=== PATIENT | female | born 1950 | race Caucasian/White ===

== ENCOUNTER → 2017-07-22 | Outpatient (CLI) | payer MEDICARE, BC | END | disposition home or self-care (01) | LOC: LABWHC1 10:10 | PROVIDERS: ATTEND Internal Medicine Endocrinology, Diabetes & Metabolism | DX: C73 Malignant neoplasm of thyroid gland (principal) | CPT/HCPCS: 36415; 84443 ==

== ENCOUNTER → 2017-12-08 | Outpatient (CLI) | payer MEDICARE, BC ==
--- NOTE | 2017-12-09 13:19 | MM ---
Reason for exam: screening (asymptomatic). Last mammogram was performed 2 years and 3 months ago. History: Patient is postmenopausal and has history of other cancer at age 65. Taking other hormone for 8 months beginning at age 65. Physical Findings: A clinical breast exam by your physician is recommended on an annual basis and results should be correlated with mammographic findings. MG 3D Screening Mammo W/Cad Bilateral CC and MLO view(s) were taken. Prior study comparison: September 19, 2015, right breast MG 3d work up w/cad RT. September 07, 2015, bilateral MG screening mammo w CAD. The breast tissue is heterogeneously dense. This may lower the sensitivity of mammography. Focal asymmetry medial right breast less defined. Fat necrosis calcifications 12 o'clock left breast. No significant changes when compared with prior studies. ASSESSMENT: Negative, BI-RAD 1 RECOMMENDATION: Routine screening mammogram of both breasts in 1 year.
== END | disposition home or self-care (01) ==
LOC: RADMAMWWP 14:13
PROVIDERS: ATTEND Family Medicine
DX: Z12.31 Encounter for screening mammogram for malignant neoplasm of breast (principal)
CPT/HCPCS: 77063; 77067

== ENCOUNTER → 2019-06-06 | Outpatient (CLI) | payer MEDICARE, BC | END | disposition home or self-care (01) | LOC: LABWHC1 11:22 | PROVIDERS: ATTEND Internal Medicine Endocrinology, Diabetes & Metabolism | DX: C73 Malignant neoplasm of thyroid gland (principal) | CPT/HCPCS: 36415; 82308; 84443 ==

== ENCOUNTER → 2020-02-21 | Outpatient (CLI) | payer MEDICARE, BC ==
--- NOTE | 2020-02-21 12:10 | XR ---
EXAMINATION TYPE: XR chest 2V DATE OF EXAM: 02/21/2020 COMPARISON: NONE HISTORY: Cough for 4 months TECHNIQUE: Frontal and lateral views of the chest are obtained. FINDINGS: Patient is rotated. There is eventration of right hemidiaphragm. Bandlike areas of increase d attenuation seen in the left lung. There is no focal air space opacity, pleural effusion, or pneumo thorax seen. The cardiac silhouette size is within normal limits. The osseous structures are intac t. Suspect bronchial wall thickening. IMPRESSION: Exam is rotated. Correlate for reactive airways disease, bronchitis. There are possible areas of scarring within the left lung, consider chest CT for better evaluation.
== END | disposition home or self-care (01) ==
LOC: RADXRMAIN 11:27
PROVIDERS: ATTEND Family Medicine
DX: R05 Cough (principal)
CPT/HCPCS: 71046

== ENCOUNTER → 2020-03-05 | Outpatient (CLI) | payer MEDICARE, BC ==
--- NOTE | 2020-03-05 11:47 | CT ---
EXAMINATION TYPE: CT chest wo con DATE OF EXAM: 03/05/2020 COMPARISON: Chest x-ray 02/21/2020 HISTORY: cough, abnormal chest xray CT DLP: 283.6 mGycm. Automated Exposure Control for Dose Reduction was Utilized. TECHNIQUE: CT scan of the thorax is performed without IV contrast. FINDINGS: LUNGS: The lungs are grossly clear, there is no concerning parenchymal mass or nodule identified. So me linear parenchymal bands may reflect underlying atelectasis or scarring. There is no pleural effus ion or pneumothorax seen. The tracheobronchial tree is patent. MEDIASTINUM: Lack of IV contrast is noted to limit evaluation for mediastinal and especially hilar ad enopathy. Enlarged retrocaval pretracheal nodes are present, aorticopulmonary window yoan enlargemen t, bilateral hilar yoan enlargement suspected. Subcarinal node shows a short axis measurement of anastacio roximately 13 mm Small hiatal hernia suspected. OTHER: No additional significant abnormality is seen. IMPRESSION: Mediastinal and hilar adenopathy. Noncontrast exam. Additional findings above.
== END | disposition home or self-care (01) ==
LOC: RADCTMAIN 10:33
PROVIDERS: ATTEND Family Medicine
DX: R59.0 Localized enlarged lymph nodes (principal); Z88.1 Allergy status to other antibiotic agents
CPT/HCPCS: 71250

== ENCOUNTER → 2020-04-30 | Outpatient (CLI) | payer MEDICARE, BC ==
[2020-04-30 14:53] LABS: African American GFR (CKD) >90 (>60 ml/min/1.73 sqM); Blood Urea Nitrogen 17 mg/dL (7-17); Non-African American GFR(CKD) 81 (>60 ml/min/1.73 sqM)
--- NOTE | 2020-04-30 15:37 | CT ---
EXAMINATION TYPE: CT chest w con DATE OF EXAM: 04/30/2020 COMPARISON: March 05, 2020 HISTORY: enlarged lymph nodes, left side chest pain CT DLP: 411 mGycm Automated exposure control for dose reduction was used. CONTRAST: CT scan of the chest is performed with IV Contrast, patient injected with 100 mL of Isovue 300. FINDINGS: LUNGS: The lungs are grossly clear, there is no concerning parenchymal mass or nodule identified. T here is no pleural effusion or pneumothorax seen. The tracheobronchial tree is patent. MEDIASTINUM: There are no greater than 1 cm hilar or mediastinal lymph nodes. No pericardial effusi on is seen. Thoracic aorta is of normal caliber. The heart is not enlarged. UPPER ABDOMEN: No significant abnormality appreciated. OTHER: No additional significant abnormality is seen. IMPRESSION: Paratracheal and AP window lymph nodes identified none of which measures greater than 1 cm in short a xis. The lungs are clear and free of nodule or infiltrate.
== END | disposition home or self-care (01) ==
LOC: RADCTMAIN 14:14
PROVIDERS: ATTEND Internal Medicine Critical Care Medicine
DX: R59.0 Localized enlarged lymph nodes (principal); Z88.0 Allergy status to penicillin
CPT/HCPCS: 82565; 84520; 71260; Q9967

== ENCOUNTER 2020-05-16 23:38 | Emergency (ER) | payer MEDICARE, BC ==
[2020-05-16 23:44] VITALS: BP 164/85; RESP 22; TEMP 98.9
[2020-05-17] MEDS ORDERED: predniSONE 20 MG TAB PO STA (00:06)
[2020-05-17] MEDS ORDERED: IPRATROPIUM-ALBUTEROL 3 ML NEB INHALATION STA (00:06)
--- NOTE | 2020-05-17 00:28 | ED ---
URI HPI - General Chief Complaint: Upper Respiratory Infection Stated Complaint: Cough Time Seen by Provider: 05/16/20 23:51 Source: patient Mode of arrival: wheelchair Limitations: no limitations - History of Present Illness Initial Comments: Patient is 69-year-old female presenting to emergency Department with chief complaint of a cough and runny nose. Patient reports his symptoms have been ongoing intermittently for the past several months. Patient states she is seen a boiler washer who obtained to CTs of her chest to rule out concerns of lung cancer. Patient states particularly over the last week she has developed increased coughing along with some yellow sputum production. She does report occasional wheezing especially today. Patient states she has an albuterol inhaler but it is not helping her symptoms. Patient denies any sore throat but reports clear bilateral rhinorrhea. Denies otalgia, headache. Denies any night sweats fevers or chills. Denies any chest pain or shortness of breath. - Related Data Home Medications Medication Instructions Recorded Confirmed Escitalopram [Lexapro] 10 mg PO DAILY 12/04/14 05/16/20 Previous Rx's Medication Instructions Recorded Azithromycin [Zithromax Z-pack] 0 mg PO DIRECTED #1 pack 05/17/20 Guaifenesin/Dextromethorphan 1 each PO BID #30 tab 05/17/20 [Mucinex Dm ER 1,200-60 mg Tab] predniSONE 50 mg PO DAILY #5 tab 05/17/20 Allergies Allergy/AdvReac Type Severity Reaction Status Date / Time No Known Allergies Allergy Verified 05/16/20 23:44 Review of Systems ROS Statement: Those systems with pertinent positive or pertinent negative responses have been documented in the HPI. ROS Other: All systems not noted in ROS Statement are negative. Past Medical History Past Medical History: Asthma, Cancer, Thyroid Disorder History of Any Multi-Drug Resistant Organisms: None Reported Past Surgical History: Section, Hernia Repair Additional Past Surgical History / Comment(s): thyroidectomy Past Psychological History: Depression Smoking Status: Former smoker Past Alcohol Use History: Occasional Past Drug Use History: None Reported General Exam Limitations: no limitations General appearance: alert, in no apparent distress Head exam: Present: atraumatic, normocephalic, normal inspection Eye exam: Present: normal appearance, PERRL, EOMI Pupils: Present: normal accommodation ENT exam: Present: normal exam, normal oropharynx, mucous membranes moist Neck exam: Present: normal inspection, full ROM. Absent: tenderness Respiratory exam: Present: wheezes (Diffuse bilateral wheezing, mild.). Absent: respiratory distress, rales, rhonchi, stridor Cardiovascular Exam: Present: regular rate, normal rhythm, normal heart sounds Extremities exam: Present: normal inspection, full ROM. Absent: tenderness Back exam: Present: normal inspection, full ROM. Absent: tenderness, CVA tenderness (R), CVA tenderness (L) Neurological exam: Present: alert, oriented X3 Psychiatric exam: Present: normal affect, normal mood Skin exam: Present: warm, dry, intact, normal color Course Vital Signs 05/16/20 05/17/20 05/17/20 23:39 00:46 01:00 Temperature 98.9 F Pulse Rate 107 H 92 96 Respiratory 22 Rate Blood Pressure 164/85 O2 Sat by Pulse 95 Oximetry - Reevaluation(s) Reevaluation #1: 05/17/20 01:49 Chart reviewed 05/17/20 01:50 Medical Decision Making - Medical Decision Making Patient is 69-year-old female presenting to the emergency department with chief complaint of cough and nasal drainage. Exam patient is mild, diffuse bilateral wheezing. Patient was given DuoNeb and 60 mg of prednisone. X-ray reveals no acute pathologies at this time. On reevaluation, patient reports no wheezing states she can breathe better now. Patient reports the cough is also improved. On auscultation, wheezing is resolved bilaterally. Patient will be discharged on azithromycin and 5 days of prednisone. I also gave the patient Mucinex DM in the ED and discharge her with Mucinex DM. Patient is scheduled to follow-up with her boiler washer tomorrow. No chest pain or shortness of breath. Vitals are stable. Strict return parameters were thoroughly discussed patient is worsening agreeable. Case discussed with physician. Disposition Clinical Impression: Cough, Bronchitis Disposition: HOME SELF-CARE Condition: Stable Instructions (If sedation given, give patient instructions): Acute Bronchitis (ED) Additional Instructions: Take prescribed medication as directed. Follow-up with a boiler washer. Return to emergency department if symptoms worsen. Prescriptions: Guaifenesin/Dextromethorphan [Mucinex Dm ER 1,200-60 mg Tab] 1 each PO BID #30 tab predniSONE 50 mg PO DAILY #5 tab Azithromycin [Zithromax Z-pack] 0 mg PO DIRECTED #1 pack Is patient prescribed a controlled substance at d/c from ED?: No Referrals: Kalyan Becerril MD [Primary Care Provider] - 1-2 days Time of Disposition: 01:24
--- NOTE | 2020-05-17 00:32 | XR ---
EXAMINATION TYPE: XR chest 2V DATE OF EXAM: 05/17/2020 COMPARISON: 02/21/2020 HISTORY: Cough TECHNIQUE: FINDINGS: Heart and mediastinum are normal. Lungs are clear. Diaphragm is normal. Bony thorax appears intact. Pulmonary vascularity is normal. IMPRESSION: Normal chest. No change.
[2020-05-17 01:01] VITALS: PULSE 96
[2020-05-17] MEDS ORDERED: guaiFENesin-DM 600/30MG 1 EACH TAB.ER.12H PO ONE (01:30)
== END 2020-05-17 01:49 | disposition home or self-care (01) ==
LOC: EC 23:38
DX: J40 Bronchitis, not specified as acute or chronic (principal); F32.9 Major depressive disorder, single episode, unspecified; Z79.899 Other long term (current) drug therapy; Z87.891 Personal history of nicotine dependence
CPT/HCPCS: 71046; 94640; 99283

== ENCOUNTER 2020-05-25 12:07 | Day surgery (SDC) | payer MEDICARE, BC ==
[2020-05-24 10:12] VITALS: BMI 30.8
[~2020-05-25 12:07] MED LIST: ALBUTEROL NEB (CONC) 2.5 MG/0.5 ML INHALATION ONE; DEXAMETHASONE SOD PHOSPHATE 10 MG/ML 1 ML VIAL IV ONE; LACTATED RINGERS 1,000 ML IV SCH; LIDOCAINE 1% (10MG/ML) FOR IV START INTRADERMA PRN; LIDOCAINE 2% (PF) 20 MG/ML 5 ML VIAL INHALATION ONE; LIDOCAINE VISCOUS 300 MG/15 ML CUP MUCOUS MEM ONE; ONDANSETRON 4 MG/2 ML VIAL IVP ONE; SODIUM CHLORIDE 0.9% 1,000 ML IV SCH
[2020-05-25 12:45] VITALS: TEMP 98.8
[2020-05-25] MEDS ORDERED: KETAMINE 10 MG/ML 20 ML VIAL ONE (14:12)
[2020-05-25] MEDS ORDERED: MIDAZOLAM 2 MG/2 ML VIAL ONE (14:12)
[2020-05-25] MEDS ORDERED: GLYCOPYRROLATE 0.2 MG/ML 2 ML VIAL ONE (14:12)
[2020-05-25] MEDS ORDERED: PROPOFOL 10 MG/ML 20 ML VIAL IV ONE (14:12)
[2020-05-25] MEDS ORDERED: LIDOCAINE 2% INJ 20 MG/ML INTRATRACH ONE (14:44)
--- NOTE | 2020-05-25 15:06 | P.PCN ---
Date of Procedure: 05/25/20 Preoperative Diagnosis: chronic cough Postoperative Diagnosis: 1 upper airway dynamic obstruction consistent with obstructive sleep apnea 2 erythematous and swollen and inflamed arytenoids and diffuse inflammatory changes involving the laryngeal structures including the epiglottis and arytenoids and the vocal cords. 3 diffuse tracheal bronchomalacia, severe 4 diffuse mucosal inflammatory changes, a bronchioloalveolar lavage of the lingula was done. Procedure(s) Performed: Flexible bronchoscopy, BAL of the lingula Anesthesia: MAC Surgeon: Keisha Poole Router Machine Operator #1: Clarice Ji Estimated Blood Loss (ml): 0 Pathology: other Condition: stable Disposition: same day Operative Findings: This is a 69-year-old female patient who is undergoing a bronchoscopy for airway inspection regarding chronic cough. The patient is a ex-smoker. She has no si gnificant environmental or occupational exposure. She has had previous based on lymphadenopathy was identified on a CAT scan of the chest was done in February 2020. Subsequent CAT scan of the chest that was done and April 2020 showed no significant change or progression of the mediastinal lymph nodes. In fact, the B cell lymph nodes looked to be smaller in size and number. No evidence of an interstitial lung disease. Airway inspection was done The patient was brought into the endoscopy suite. The patient was given a combination of Versed, ketamine and propofol. Note that his medication was being administered by APPLIED ANTHROPOLOGIST at the bedside. After achieving adequate sedation, the flexible bronchoscope was introduced through the right nostril was advanced to the operating room. There was obvious dynamic obstruction of the upper airway structures including the pharyngeal the laryngeal wall and this was typical of obstructive sleep apnea. The neck was positioned and the jaw was lifted to achieve better airway patency. Bronchoscope was advanced into the larynx and the laryngeal structures were inspected. Epiglottis was erythematous and inflamed. Arytenoids were swollen and the anatomy was somewhat disrupted based on the significant swelling and inflammatory changes that was seen in the arytenoids. There was some looseness for secretions and saliva the secretions and the vallecula that was suctioned out. The joint the false vocal cords were inspected. These were functional and there was no anatomic obstruction or lesions or nodules are polyps. A total of 2 mL of 1% lidocaine was applied to the vocal cords and following that the flexible bronchoscope was advanced into the upper trachea. Immediately after this advancement, he was obvious that the patient had a component of severe tracheal bronchomalacia. There was no subglottic stenosis. The entire trachea was inspected and taken mucosa was again inflamed and erythematous. The membranous trachea was very dynamic and the patient was having near complete occlusion of the airway lumen with exhalation and coughing. There was almost complete obstruction to the point where I was unable to advance the bronchoscope while the patient was exhaling and coughing. With careful medication, adequate airway inspection was done. I was unable to complete airway inspection as the patient was having airway obstruction which was probably a combination of upper and lower airways where she was desaturating and a pulse ox was dropping in the mid 60s. On few occasions, the procedure was interrupted and stopped for bathing purposes where the patient was given some ambu bagging improved oxygenation bringing it up above 90%. I was able to briefly do a bronchioloalveolar lavage of the superior segment of the lingula. The bronchoscope was wedged in the severe segment and a total of 6 mL of fluid was infused and 15 mL of aspirate was obtained and the aspirate was blood tinged yet not hemorrhagic. It was obvious that the entire airway was involved in significant degree of bronchomalacia where there was near complete collapse of the airways with exhalation maneuvers. Unable to do a Full airway inspection. The visualized airways showed malacia without any endobronchial foreign bodies or tumors or polyps or lesions. For the reasons of safety and oxygen saturation, the procedure was terminated. The bronchoscope was removed. The patient was given adequate oxygenation with a pulse ox was brought above 90% and the procedure was terminated. The fluid that was aspirated from the lingula will be sent for microbial cultures and analysis. Plan 1 BAL from the lingula for Gram stain and culture the microbial analysis 2 This patient for a sleep study, with a high suspicion for obstructive sleep apnea 3 Add proton pump inhibitor such as Prilosec 40 mg by mouth daily 4 CT of the chest was reviewed 5 Suggest maintenance inhalers such as Breo or Advair 6 Suggest low dose predsnisone at 10 mg daily for the next 30 days and a revaluation 7 Diflucan 100 mg daily for 1 week 8 FU in the office
[2020-05-25] MEDS ORDERED: LACTATED RINGERS 1,000 ML IV ONE (15:19)
[2020-05-25 15:46] VITALS: RESP 20
[2020-05-25 16:07] LABS: Appearance,BF Blood Tinged; Color,BF Pink; Nucleated Cells, Body Fluid 525 /uL; RBC, Body Fluid 13475 /uL
[2020-05-25 16:09] LABS: Mononuclear WBC,Body Fluid 28 %; Polynuclear WBC,Body Fluid 63 %; Total Cells Counted,Body Fluid 100
[2020-05-25 16:18] VITALS: BP 138/84; PULSE 100
== END 2020-05-25 16:47 | disposition home or self-care (01) ==
LOC: ORWHC2ENDO 12:07
PROVIDERS: ATTEND Internal Medicine Critical Care Medicine
DX: J98.09 Other diseases of bronchus, not elsewhere classified (principal); R05 Cough; J98.8 Other specified respiratory disorders; R59.0 Localized enlarged lymph nodes; F32.9 Major depressive disorder, single episode, unspecified; Z85.850 Personal history of malignant neoplasm of thyroid; Z81.8 Family history of other mental and behavioral disorders; Z83.511 Family history of glaucoma; Z87.891 Personal history of nicotine dependence; Z98.890 Other specified postprocedural states; Z79.890 Hormone replacement therapy; Z79.899 Other long term (current) drug therapy; Z88.0 Allergy status to penicillin
CPT/HCPCS: 89050; 87252; 87070; 87205; 87116; 87102; 87206; 31624; J2001; J2250; J2704; 88108; 88305

== ENCOUNTER → 2020-06-15 | Outpatient (CLI) | payer MEDICARE, BC ==
[2020-06-16 00:02] LABS: African American GFR (CKD) 85.4 (60.0-200.0); Albumin 4.1 g/dL (3.80-4.90); Albumin/Globulin Ratio 1.64 (1.60-3.17); Anion Gap 9.6 mmol/L (4.00-12.00); BUN/Creat Ratio 21.25 Ratio (12.00-20.00); Calcium 9.2 mg/dL (8.7-10.3); Carbon Dioxide 27.4 mmol/L (21.6-31.8); Globulin 2.5 g/dL (1.6-3.3); Non-African American GFR(CKD) 73.7 (60.0-200.0); Potassium 4.1 mmol/L (3.5-5.5); Total Bilirubin 0.5 mg/dL (0.3-1.2); Total Protein 6.6 g/dL (6.2-8.2)
== END | disposition home or self-care (01) ==
LOC: LABWHC1 12:59
PROVIDERS: ATTEND Internal Medicine Endocrinology, Diabetes & Metabolism
DX: C73 Malignant neoplasm of thyroid gland (principal)
CPT/HCPCS: 36415; 80053; 82308; 84443

== ENCOUNTER → 2020-06-29 | Outpatient (CLI) | payer MEDICARE, BC ==
--- NOTE | 2020-06-30 09:04 | CT ---
EXAMINATION TYPE: CT abdomen w con DATE OF EXAM: 06/29/2020 COMPARISON: None HISTORY: abdominal pain and burning sensation CT DLP: 589.2 mGycm Automated exposure control for dose reduction was used. TECHNIQUE: Helical acquisition of images was performed from the lung bases through the top of iliac crest to include entire abdomen. CONTRAST: Performed with Oral Contrast and with IV Contrast, patient injected with 100 mL of Isovue 300. FINDINGS: LUNG BASES: Some minimal dependent atelectatic changes are present, no pleural or pericardial effusio n LIVER/GB: No significant abnormality is appreciated. PANCREAS: No significant abnormality is seen. SPLEEN: No significant abnormality is seen. ADRENALS: No significant abnormality is seen. KIDNEYS: No significant abnormality is seen. BOWEL: Extensive diverticular changes noted in the sigmoid colon. The appendix is normal. LYMPH NODES: No significant abnormality is appreciated. OSSEOUS STRUCTURES: Degenerative disc changes are present in the visualized spine, there is a spinal curvature FREE AIR: No Free Air visible ASCITES: None visible. RETROPERITONEAL ADENOPATHY: No Retroperitoneal Adenopathy visible. OTHER: IMPRESSION: DIVERTICULOSIS.
== END | disposition home or self-care (01) ==
LOC: RADCTMAIN 15:54
PROVIDERS: ATTEND Family Medicine
DX: K57.30 Diverticulosis of large intestine without perforation or abscess without bleeding (principal); R10.12 Left upper quadrant pain
CPT/HCPCS: 82565; 84520; 74160; 36415; Q9967

== ENCOUNTER 2020-09-25 13:39 | Inpatient (IN) | payer MEDICARE, BC ==
--- NOTE | 2020-09-25 14:30 | ED ---
General Adult HPI - General Chief complaint: Chest Pain Stated complaint: Chest Pain Time Seen by Provider: 09/25/20 13:40 Source: patient, RN notes reviewed, old records reviewed Mode of arrival: ambulatory Limitations: no limitations - History of Present Illness Initial comments: This is a 70-year-old female presents emergency Department stating since she has felt extremely tired and weak. Patient states she's had a cough and some shortness of breath and some pleuritic chest pain. Patient states she's not taking deep breaths she has no chest pain. Patient also states she's had diarrhea and a runny nose. Patient states she probably has had some exposure to cold but she doesn't know specifically any personal headache. Patient denies any abdominal pain patient denies nausea vomiting. Patient denies any headache patient denies any numbness weakness. Patient denies lightheadedness or dizziness. Patient denies any swelling to her legs. - Related Data Home Medications Medication Instructions Recorded Confirmed Escitalopram [Lexapro] 10 mg PO DAILY 12/04/14 09/25/20 Albuterol Inhaler [Ventolin Hfa 2 puff INHALATION RT-Q4H PRN 05/24/20 09/25/20 Inhaler] Calcium Carb/Vitamin D3/Vit K1 1 tab PO DAILY 05/24/20 09/25/20 [Citracal Soft Chew] Chorella 1,000 mg PO BID 05/24/20 09/25/20 Garlic 1 tab PO DAILY 05/24/20 09/25/20 Levothyroxine Sodium [Synthroid] 75 mcg PO DAILY@0300 05/24/20 09/25/20 Multivitamin [Multivitamins Adult 1 tab PO BID 05/24/20 09/25/20 Gummies] Ceyenne 1 tab PO DAILY 09/25/20 09/25/20 Eye Bright 1 tab PO BID 09/25/20 09/25/20 Hazard [place] 1 tab PO DAILY 09/25/20 09/25/20 Montelukast [Singulair] 10 mg PO DAILY 09/25/20 09/25/20 Pantoprazole [Protonix] 40 mg PO DAILY 09/25/20 09/25/20 Super Orderless Garlic 1 tab PO DAILY 09/25/20 09/25/20 Allergies Allergy/AdvReac Type Severity Reaction Status Date / Time amoxicillin [From Augmentin] Allergy Vomiting Verified 09/25/20 14:28 clavulanic acid Allergy Vomiting Verified 09/25/20 14:28 [From Augmentin] Review of Systems ROS Statement: Those systems with pertinent positive or pertinent negative responses have been documented in the HPI. ROS Other: All systems not noted in ROS Statement are negative. Past Medical History Past Medical History: Cancer, Thyroid Disorder Additional Past Medical History / Comment(s): THYROID CANCER, COUGH History of Any Multi-Drug Resistant Organisms: None Reported Past Surgical History: Section, Hernia Repair Additional Past Surgical History / Comment(s): thyroidectomy Past Anesthesia/Blood Transfusion Reactions: No Reported Reaction Past Psychological History: Depression Smoking Status: Former smoker Past Alcohol Use History: None Reported Past Drug Use History: None Reported - Past Family History Mother Family Medical History: No Reported History General Exam - General Exam Comments Initial Comments: GENERAL: Patient is well-developed and well-nourished. Patient is nontoxic and well- hydrated and is in mild distress. ENT: Neck is soft and supple. No significant lymphadenopathy is noted. Oropharynx is clear. Moist mucous membranes. Neck has full range of motion without eliciting any pain. EYES: The sclera were anicteric and conjunctiva were pink and moist. Extraocular movements were intact and pupils were equal round and reactive to light. Eyelids were unremarkable. PULMONARY: Unlabored respirations. Good breath sounds bilaterally. No audible rales rhonchi or wheezing was noted. CARDIOVASCULAR: There is a regular rate and rhythm without any murmurs gallops or rubs. ABDOMEN: Soft and nontender with normal bowel sounds. SKIN: Skin is clear with no lesions or rashes and otherwise unremarkable. NEUROLOGIC: Patient is alert and oriented x3. Cranial nerves II through XII are grossly int act. Motor and sensory are also intact. Normal speech, volume and content. Symmetrical smile. MUSCULOSKELETAL: Normal extremities with adequate strength and full range of motion. No lower extremity swelling or edema. No calf tenderness. LYMPHATICS: No significant lymphadenopathy is noted PSYCHIATRIC: Normal psychiatric evaluation. Limitations: no limitations Course Vital Signs 09/25/20 09/25/20 13:40 15:21 Temperature 99.3 F Pulse Rate 108 H 96 Respiratory 16 18 Rate Blood Pressure 159/104 156/96 O2 Sat by Pulse 90 L 98 Oximetry Medical Decision Making - Medical Decision Making EKG shows normal sinus rhythm at 90 bpm IL interval 218 QRS is 90 QT interval 340 QTC is 434. Patient's EKG shows no ST segment elevation or depression or T wave abnormalities are noted. Patient's chest x-ray shows COVID pneumonia. Patient elevated d-dimer so I did a CT and it showed COVID pneumonia on the CT as well. I started the patient intact. I spoke with Dr. Rob he agreed to admit the patient admitted the patient wrote admitting orders. - Lab Data Result diagrams: 09/25/20 14:20 09/25/20 14:20 Lab Results 09/25/20 09/25/20 09/25/20 Range/Units 14:20 14:20 14:20 WBC 5.1 (3.8-10.6) k/uL RBC 4.99 (3.80-5.40) m/uL Hgb 14.8 (11.4-16.0) gm/dL Hct 44.8 (34.0-46.0) % MCV 89.7 (80.0-100.0) fL MCH 29.7 (25.0-35.0) pg MCHC 33.1 (31.0-37.0) g/dL RDW 12.6 (11.5-15.5) % Plt Count 270 (150-450) k/uL MPV 6.9 Neutrophils % 82 % Lymphocytes % 11 % Monocytes % 4 % Eosinophils % 2 % Basophils % 0 % Neutrophils # 4.2 (1.3-7.7) k/uL Lymphocytes # 0.6 L (1.0-4.8) k/uL Monocytes # 0.2 (0-1.0) k/uL Eosinophils # 0.1 (0-0.7) k/uL Basophils # 0.0 (0-0.2) k/uL PT 9.8 (9.0-12.0) sec INR 0.9 (<1.2) APTT 26.3 (22.0-30.0) sec D-Dimer 1.14 H (<0.60) mg/L FEU Sodium 135 L (137-145) mmol/L Potassium 3.9 (3.5-5.1) mmol/L Chloride 101 (98-107) mmol/L Carbon Dioxide 26 (22-30) mmol/L Anion Gap 8 mmol/L BUN 13 (7-17) mg/dL Creatinine 0.63 (0.52-1.04) mg/dL Est GFR (CKD-EPI)AfAm >90 (>60 ml/min/1.73 sqM) Est GFR (CKD-EPI)NonAf 90 (>60 ml/min/1.73 sqM) Glucose 106 H (74-99) mg/dL Plasma Lactic Acid Sivakumar (0.7-2.0) mmol/L Calcium 8.7 (8.4-10.2) mg/dL Magnesium 1.9 (1.6-2.3) mg/dL Total Bilirubin 0.5 (0.2-1.3) mg/dL AST 52 H (14-36) U/L ALT 39 H (4-34) U/L Alkaline Phosphatase 78 (38-126) U/L Lactate Dehydrogenase 789 H (313-618) U/L Troponin I (0.000-0.034) ng/mL C-Reactive Protein 44.9 H (<10.0) mg/L Total Protein 7.5 (6.3-8.2) g/dL Albumin 4.0 (3.5-5.0) g/dL Influenza Type A (PCR) (Not Detectd) Influenza Type B (PCR) (Not Detectd) RSV (PCR) (Not Detectd) SARS-CoV-2 (PCR) (Not Detectd) 09/25/20 09/25/20 09/25/20 Range/Units 14:20 14:20 15:36 WBC (3.8-10.6) k/uL RBC (3.80-5.40) m/uL Hgb (11.4-16.0) gm/dL Hct (34.0-46.0) % MCV (80.0-100.0) fL MCH (25.0-35.0) pg MCHC (31.0-37.0) g/dL RDW (11.5-15.5) % Plt Count (150-450) k/uL MPV Neutrophils % % Lymphocytes % % Monocytes % % Eosinophils % % Basophils % % Neutrophils # (1.3-7.7) k/uL Lymphocytes # (1.0-4.8) k/uL Monocytes # (0-1.0) k/uL Eosinophils # (0-0.7) k/uL Basophils # (0-0.2) k/uL PT (9.0-12.0) sec INR (<1.2) APTT (22.0-30.0) sec D-Dimer (<0.60) mg/L FEU Sodium (137-145) mmol/L Potassium (3.5-5.1) mmol/L Chloride (98-107) mmol/L Carbon Dioxide (22-30) mmol/L Anion Gap mmol/L BUN (7-17) mg/dL Creatinine (0.52-1.04) mg/dL Est GFR (CKD-EPI)AfAm (>60 ml/min/1.73 sqM) Est GFR (CKD-EPI)NonAf (>60 ml/min/1.73 sqM) Glucose (74-99) mg/dL Plasma Lactic Acid Sivakumar 1.2 (0.7-2.0) mmol/L Calcium (8.4-10.2) mg/dL Magnesium (1.6-2.3) mg/dL Total Bilirubin (0.2-1.3) mg/dL AST (14-36) U/L ALT (4-34) U/L Alkaline Phosphatase (38-126) U/L Lactate Dehydrogenase (313-618) U/L Troponin I <0.012 (0.000-0.034) ng/mL C-Reactive Protein (<10.0) mg/L Total Protein (6.3-8.2) g/dL Albumin (3.5-5.0) g/dL Influenza Type A (PCR) Not Detected (Not Detectd) Influenza Type B (PCR) Not Detected (Not Detectd) RSV (PCR) Not Detected (Not Detectd) SARS-CoV-2 (PCR) Detected A (Not Detectd) Critical Care Time Critical Care Time: Yes Total Critical Care Time: 35 Disposition Clinical Impression: Pneumonia due to COVID-19 virus Disposition: ADMITTED IP TO THIS HOSP Referrals: Kalyan Becerril MD [Primary Care Provider] - 1-2 days Time of Disposition: 17:05
[2020-09-25 14:56] LABS: ALT 39 U/L (4-34); AST 52 U/L (14-36); African American GFR (CKD) >90 (>60 ml/min/1.73 sqM); Alkaline Phosphatase 78 U/L (38-126); Anion Gap 8 mmol/L; Blood Urea Nitrogen 13 mg/dL (7-17); C Reactive Protein 44.9 mg/L (<10.0); Calcium 8.7 mg/dL (8.4-10.2); Carbon Dioxide 26 mmol/L (22-30); Chloride 101 mmol/L (98-107); Glucose 106 mg/dL (74-99); LDH 789 U/L (313-618); Magnesium 1.9 mg/dL (1.6-2.3); Non-African American GFR(CKD) 90 (>60 ml/min/1.73 sqM); Potassium 3.9 mmol/L (3.5-5.1); Sodium 135 mmol/L (137-145); Total Bilirubin 0.5 mg/dL (0.2-1.3); Total Protein 7.5 g/dL (6.3-8.2)
[2020-09-25 15:02] LABS: Basophils % (A) 0 %; Eosinophils # (A) 0.1 k/uL (0-0.7); Eosinophils % (A) 2 %; HCT 44.8 % (34.0-46.0); HGB 14.8 gm/dL (11.4-16.0); Lymphocytes # (A) 0.6 k/uL (1.0-4.8); Lymphocytes % (A) 11 %; MCH 29.7 pg (25.0-35.0); MCHC 33.1 g/dL (31.0-37.0); MCV 89.7 fL (80.0-100.0); Mean Platelet Volume 6.9; Monocytes # (A) 0.2 k/uL (0-1.0); Monocytes % (A) 4 %; Neutrophils # (A) 4.2 k/uL (1.3-7.7); Neutrophils % (A) 82 %; Platelet Count 270 k/uL (150-450); RBC 4.99 m/uL (3.80-5.40); RDW 12.6 % (11.5-15.5); WBC 5.1 k/uL (3.8-10.6)
--- NOTE | 2020-09-25 15:04 | XR ---
EXAMINATION TYPE: XR chest 1V portable DATE OF EXAM: 09/25/2020 COMPARISON: Chest x-ray May 17, 2020. Chest CT April 30, 2020. HISTORY: Cough, shortness of breath, and chest pain. TECHNIQUE: Single AP portable frontal upright view of the chest is obtained. FINDINGS: There is bilateral mild chronic emphysematous and pulmonary fibrotic changes with new incr eased opacities in the bilateral mid to lower lungs. No pleural effusion or pneumothorax seen bilate rally. The cardiac silhouette size is stable and within normal limits without change in the aortic kn ob. The osseous structures are somewhat demineralized. IMPRESSION: Chronic changes with new bilateral multifocal acute infiltrates in the mid to lower lung s. Correlate for possible covid 19 infection in current environment.
[2020-09-25 15:23] LABS: INR 0.9 (<1.2); Partial Thromboplastin Time 26.3 sec (22.0-30.0); Prothrombin Time 9.8 sec (9.0-12.0)
[2020-09-25 15:29] LABS: D-Dimer 1.14 mg/L FEU (<0.60)
--- NOTE | 2020-09-25 16:12 | CT ---
EXAMINATION TYPE: CT chest angio for PE DATE OF EXAM: 09/25/2020 COMPARISON: Chest x-ray earlier today and older studies. Chest CT April 30, 2020. HISTORY: shortness of breath and chest pain. CT DLP: 281.5 mGycm Automated exposure control for dose reduction was used. CONTRAST: CT Chest for pulmonary embolism performed with with IV Contrast, patient injected with 100 mL of Isov ue 370. FINDINGS: LUNGS: There are bilateral multifocal areas of groundglass opacities and organizing consolidations gr eatest in the periphery. Tiny bilateral pleural effusions. Posterior compressive atelectasis and/or o rganizing consolidations towards the bases. No pneumothorax seen bilaterally. MEDIASTINUM: There is no equal contrast in right and left heart systems but there is no CT evidence f or pulmonary embolism. No thoracic aortic aneurysm or dissection. Enlarged bilateral hilar lymph nod es along with enlarged AP window and subcarinal adenopathy. Findings presumed reactive. No cardiomeg daniel or pericardial effusion is seen. OTHER: Underlying scoliotic curvature. Moderate multilevel spurring in the spine. Surgical change or dystrophic calcification left breast axial image 49 is redemonstrated. IMPRESSION: Findings consistent with covid 19 infection as suspected on recent x-ray are confirmed. N o CT evidence for acute pulmonary embolism.
[2020-09-25] MEDS ORDERED: dexAMETHasone 2 MG TAB PO STA (16:38)
[2020-09-25] MEDS ORDERED: SODIUM CHLORIDE 0.9% 1,000 ML IV ONE (17:05)
[2020-09-25] MEDS ORDERED: HYDROcodone/APAP 5-325MG 1 EACH TAB PO PRN (17:53)
[2020-09-25] MEDS ORDERED: ALPRAZolam 0.25 MG TAB PO PRN (17:53)
[2020-09-25] MEDS: ZINC SULFATE 220 MG CAP PO SCH (18:03)
--- NOTE | 2020-09-25 19:02 | HP ---
HISTORY AND PHYSICAL I am covering for Dr. Becerril. DATE OF SERVICE: 09/25/2020 CHIEF COMPLAINT: Chest pain. HISTORY OF PRESENT ILLNESS: This 70-year-old woman with a past medical history of hypothyroidism, history of thyroid cancer, history of section, hernia repair, depression, was not feeling well over the past several days. The patient was sick after [place] and apparently her daughter also had COVID infection. The patient is complaining of significant cough and some chest pain and shortness of breath. The patient is feeling weak also. The patient came to [facility] ER and was admitted for further evaluation and treatment. The COVID-19 test was positive. D-dimer was elevated. Chest x-ray showed bilateral extensive interstitial pneumonia suggestive of COVID-19 pneumonia. Inflammatory markers for COVID are also elevated. There is no history of any fever, rigor or chills. No history of headache, loss of consciousness, seizures at this time. PAST MEDICAL HISTORY: History of hypothyroidism, history of cough, section, hernia repair, depression. HOME MEDICATIONS: Protonix, multivitamins, Singulair, Synthroid, hawthorn draper, Lexapro, chorella, ceyenne. ALLERGIES: AUGMENTIN. FAMILY HISTORY: No history of heart disease or strokes in the family. SOCIAL HISTORY: History of occasional alcohol intake. Previous history of smoking. No current smoking. REVIEW OF SYSTEMS: ENT: No diminished hearing. No diminished vision. CARDIOVASCULAR SYSTEM: As mentioned earlier. RESPIRATORY SYSTEM: As mentioned earlier. GI: No nausea, vomiting. : No dysuria or retention. NERVOUS SYSTEM: No numbness, weakness. ALLERGY/IMMUNOLOGY: No asthma, hayfever. MUSCULOSKELETAL: As mentioned earlier. HEMATOLOGY/ONCOLOGY: No history of anemia. ENDOCRINE: Hypothyroidism. CONSTITUTIONAL: As mentioned earlier. DERMATOLOGY: Negative. RHEUMATOLOGY: Negative. PSYCHIATRY: As mentioned earlier. PHYSICAL EXAMINATION: Patient alert and oriented x3. Pulse 95, blood pressure 159/89, respiration 20, temperature 99.3, pulse ox 96% on room air, 90% on room air initially. HEENT: Conjunctivae normal. NECK: No jugular venous distention. CARDIOVASCULAR SYSTEM: S1, S2 muffled. RESPIRATORY SYSTEM: Breath sounds diminished at the bases. A few scattered rhonchi. ABDOMEN: Soft, non-tender. LEGS: No edema. No swelling. NERVOUS SYSTEM: Higher functions as mentioned earlier. Moves all 4 limbs. No focal motor or sensory deficit. LYMPHATICS: No lymph node palpable in neck, axillae or groin. SKIN: No ulcer, rash, bleeding. JOINTS: No active deforming arthropathy. LABS/IMAGING: CBC within normal limits and D-dimer is 1.1. Sodium 135. Chest x-ray and CT scan reviewed personally. ASSESSMENT: 1. Acute COVID-19 infection with acute bilateral COVID-19 pneumonia with acute hypoxic respiratory failure. 2. Elevated D-dimer with no evidence of pulmonary embolism. 3. Hyponatremia. 4. Elevated AST and ALT. 5. Elevated LDH. 6. Elevated CRP. 7. History of thyroid cancer. 8. History of cough. 9. History of hernia repair. 10.Remote history of nicotine dependence. 11.History of depression. 12.Obesity with body mass of 31.7. 13.FULL CODE. RECOMMENDATIONS AND DISCUSSION: In this 70-year-old woman who presented with multiple complex medical issues, we will monitor the patient closely, continue the current medications, continue symptomatic treatment. Otherwise at this time I recommend dexamethasone, zinc, conservative line of treatment. Resume the home medication, bronchodilators. I would also consult Infectious Disease for evaluation of the patient for possible remdesivir. The inflammatory markers will be serially tracked. Overall prognosis guarded because of multiple complex medical issues and extensive pneumonia. Further recommendations to follow. The patient will be arranged to follow up with Dr. Becerril in the outpatient setting. MMODL / IJN: [id number] /
[2020-09-25] MEDS: ALBUTEROL HFA INHALER INHALATION SCH (19:43)
[2020-09-25 20:24] LABS: Ferritin 394.5 ng/mL (10.0-291.0)
[2020-09-25] MEDS: MULTIVITAMINS, THERA 1 EACH TAB PO SCH (21:05)
[2020-09-25] MEDS: FAMOTIDINE 20 MG TAB PO SCH (21:05)
[2020-09-26] MEDS: ALBUTEROL HFA INHALER INHALATION SCH ×4 (03:59→20:59)
[2020-09-26] MEDS: LEVOTHYROXINE 75 MCG TAB PO SCH (04:59)
[2020-09-26 06:29] LABS: Basophils % (A) 1 %; Eosinophils % (A) 0 %; HCT 40.3 % (34.0-46.0); HGB 13.4 gm/dL (11.4-16.0); Lymphocytes # (A) 0.6 k/uL (1.0-4.8); Lymphocytes % (A) 19 %; MCH 29.9 pg (25.0-35.0); MCHC 33.2 g/dL (31.0-37.0); Mean Platelet Volume 6.8; Monocytes # (A) 0.2 k/uL (0-1.0); Monocytes % (A) 5 %; Neutrophils # (A) 2.1 k/uL (1.3-7.7); Neutrophils % (A) 72 %; Platelet Count 274 k/uL (150-450); RBC 4.48 m/uL (3.80-5.40); RDW 12.3 % (11.5-15.5); WBC 2.9 k/uL (3.8-10.6)
[2020-09-26] MEDS: CHOLECALCIFEROL 1,000 UNIT TAB PO SCH (09:11)
[2020-09-26] MEDS: MONTELUKAST 10 MG TAB PO SCH (09:11)
[2020-09-26] MEDS: ESCITALOPRAM 10 MG TAB PO SCH (09:11)
[2020-09-26] MEDS: ASCORBIC ACID 500 MG TAB PO SCH (09:11)
[2020-09-26] MEDS: PANTOPRAZOLE 40 MG TABLET PO SCH (09:11)
[2020-09-26] MEDS: dexAMETHasone 2 MG TAB PO SCH (09:11)
[2020-09-26] MEDS: ZINC SULFATE 220 MG CAP PO SCH (09:11)
[2020-09-26] MEDS: MULTIVITAMINS, THERA 1 EACH TAB PO SCH ×2 (09:11→20:54)
[2020-09-26] MEDS: FAMOTIDINE 20 MG TAB PO SCH (09:11)
[2020-09-26 10:03] LABS: African American GFR (CKD) 105.5 (60.0-200.0); Albumin 3.8 g/dL (3.80-4.90); Albumin/Globulin Ratio 1.65 (1.60-3.17); BUN/Creat Ratio 21.67 Ratio (12.00-20.00); Calcium 8.4 mg/dL (8.7-10.3); Globulin 2.3 g/dL (1.6-3.3); Non-African American GFR(CKD) 91.1 (60.0-200.0); Potassium 4.4 mmol/L (3.5-5.5); Total Bilirubin 0.3 mg/dL (0.3-1.2); Total Protein 6.1 g/dL (6.2-8.2)
[2020-09-26] MEDS ORDERED: REMDESIVIR 200 MG in SODIUM CHLORIDE 0.9% 250 ML IVPB ONE (10:57)
[2020-09-26 13:05] VITALS: BMI 31.7
[2020-09-26] MEDS: ENOXAPARIN 40 MG/0.4 ML SYRINGE SQ SCH (13:18)
--- NOTE | 2020-09-26 14:32 | P.CNPUL ---
History of Present Illness Consult date: 09/26/20 Requesting physician: Atiya Rob Reason for consult: dyspnea, abnormal CXR/CT Chief complaint: Shortness of breath, cough congestion History of present illness: This a very pleasant 70-year-old female patient who follows with Dr. Becerril as her primary care provider. She has a history of thyroid cancer status post thyroidectomy, former smoker, depression. She also had a history of chronic c ough and was seen in our office for the same. She had undergone bronchoscopy with BAL back in April 2020 and has been doing well since. She states she had been having symptoms of shortness of breath cough and congestion for several weeks now. Since [place] however she developed increasing shortness of breath, cough, diarrhea, pleuritic-type chest pain and sinus congestion. She presented here to the emergency room yesterday with similar symptoms and worsening chest pain. She did test positive for Coronavirus. Chest x-ray revealed chronic changes with new bilateral multifocal acute infiltrates to the mid and lower lungs. CT angiogram revealed no evidence of pulmonary embolism. Findings were consistent with CoVID 19 infection with multifocal areas of groundglass opacities. White count 2.9. Hemoglobin 13.4. Lymphocytes 0.6. D- dimer 1.14. Sodium 138. Potassium 4.4. Creatinine 0.6. Glucose 139. Ferritin 394. LDH 789. C-reactive protein 44.9. Troponin negative 1. Pro- calcitonin 0.10. She is seen today in consultation on the regular medical floor. She is currently sitting up in bed. Awake and alert in no acute distress. Maintaining O2 saturations in the 90s on 2 L/m per nasal cannula. She's afebrile. Hemodynamically stable. She has been initiated on dexame thasone, Lovenox, vitamin supplements. Review of Systems REVIEW OF SYSTEMS: CONSTITUTIONAL: Denies any recent significant weight loss or weight gain. EYES: Denies change in vision. EARS, NOSE, MOUTH, THROAT: Denies headaches, denies sore throat. CARDIOVASCULAR: Positive for chest wall chest pain, no palpitations or syncopal episodes. RESPIRATORY: Positive for shortness of breath, cough, congestion no hemoptysis. GASTROINTESTINAL: Positive for diarrhea. Denies change in appetite, denies abdominal pain GENITOURINARY: Denies hematuria, denies infections. MUSKULOSKELETAL: Denies pain, denies swelling. INTEGUMENTARY: Denies rash, denies eczema. NEUROLOGICAL: Denies recent memory loss, no recent seizure activity. PSYCHIATRIC: Denies anxiety, denies depression. HEMATOLOGIC/LYMPHATIC: Denies anemia, denies enlarged lymph nodes. Past Medical History Past Medical History: Cancer, Eye Disorder, Osteoarthritis (OA), Pneumonia, Respiratory Disorder, Thyroid Disorder Additional Past Medical History / Comment(s): Tracheobronchomalacia, chronic cough, 07/2020 pt started with L eye decreased opening-has had MRI done-pt states one physician thought it was possible d/t sinus infection and was placed on antibiotic, bilateral eye glaucoma/surgery on R eye but holding off surgery on L eye d/t decreased opening, chronic diarrhea since November 2019, benign colon polyps, UTIs, back pain. History of Any Multi-Drug Resistant Organisms: None Reported Past Surgical History: Section, Hernia Repair Additional Past Surgical History / Comment(s): thyroidectomy, bronchoscopy/BAL 04/2020, R inguinal hernia repair, R eye laser surgery for glaucoma, colonoscopy with polyps 2017 Past Anesthesia/Blood Transfusion Reactions: No Reported Reaction Smoking Status: Former smoker - Past Family History Mother Family Medical History: Dementia Additional Family Medical History / Comment(s): Polio Father Family Medical History: Diabetes Mellitus, Eye Disorder Additional Family Medical History / Comment(s): Glaucoma Medications and Allergies Home Medications Medication Instructions Recorded Confirmed Type Escitalopram [Lexapro] 10 mg PO DAILY 12/04/14 09/25/20 History Albuterol Inhaler [Ventolin Hfa 2 puff INHALATION RT-Q4H PRN 05/24/20 09/25/20 History Inhaler] Calcium Carb/Vitamin D3/Vit K1 1 tab PO DAILY 05/24/20 09/25/20 History [Citracal Soft Chew] Chorella 1,000 mg PO BID 05/24/20 09/25/20 History Garlic 1 tab PO DAILY 05/24/20 09/25/20 History Levothyroxine Sodium [Synthroid] 75 mcg PO DAILY@0300 05/24/20 09/25/20 History Multivitamin [Multivitamins Adult 1 tab PO BID 05/24/20 09/25/20 History Gummies] [place] 1 tab PO DAILY 09/25/20 09/25/20 History Eye Bright 1 tab PO BID 09/25/20 09/25/20 History [place] 1 tab PO DAILY 09/25/20 09/25/20 History Montelukast [Singulair] 10 mg PO DAILY 09/25/20 09/25/20 History Pantoprazole [Protonix] 40 mg PO DAILY 09/25/20 09/25/20 History Super Orderless Garlic 1 tab PO DAILY 09/25/20 09/25/20 History Allergies Allergy/AdvReac Type Severity Reaction Status Date / Time amoxicillin [From Augmentin] Allergy Vomiting Verified 09/25/20 14:28 clavulanic acid Allergy Vomiting Verified 09/25/20 14:28 [From Augmentin] Physical Exam Vitals: Vital Signs Temp Pulse Pulse Resp BP BP Pulse Ox 09/26/20 11:00 97.4 F L 78 17 124/78 94 L 09/26/20 05:00 97.5 F L 68 18 155/90 93 L 09/25/20 20:10 18 09/25/20 20:00 98 F 97 18 155/92 93 L 09/25/20 17:00 95 20 159/89 96 09/25/20 16:30 95 18 162/94 94 L 09/25/20 16:00 96 22 142/89 92 L 09/25/20 15:21 96 18 156/96 98 Intake and Output 09/25/20 09/26/20 09/26/20 22:59 06:59 14:59 Intake Total 1200 Balance 1200 Intake: Intake, IV Titration 600 Amount Sodium Chloride 0.9% 1, 600 000 ml @ 50 mls/hr IV . Q20H ONE Rx#:[id number] Oral 600 Other: Voiding Method Toilet Toilet # Voids 3 Weight 71.214 kg 71.214 kg GENERAL EXAM: Alert, very pleasant 70-year-old female patient, on 2 L nasal cannula, comfortable in no apparent distress. HEAD: Normocephalic. EYES: Normal reaction of pupils, equal size. NOSE: Clear with pink turbinates. THROAT: No erythema or exudates. NECK: No masses, no JVD. CHEST: No chest wall deformity. LUNGS: Equal air entry with few scattered crackles at the bases. CVS: S1 and S2 normal with no audible murmur, regular rhythm. ABDOMEN: No hepatosplenomegaly, normal bowel sounds, no guarding or rigidity. SPINE: No scoliosis or deformity SKIN: No rashes CENTRAL NERVOUS SYSTEM: No focal deficits, tone is normal in all 4 extremities. EXTREMITIES: There is no peripheral edema. No clubbing, no cyanosis. Peripheral pulses are intact. Results - Laboratory Findings CBC and BMP: 09/26/20 05:45 09/26/20 05:45 PT/INR, D-dimer PT 9.8 sec (9.0-12.0) 09/25/20 14:20 INR 0.9 (<1.2) 09/25/20 14:20 D-Dimer 1.14 mg/L FEU (<0.60) H 09/25/20 14:20 Abnormal lab findings: Abnormal Labs 09/25/20 09/25/20 09/25/20 14:20 14:20 14:20 WBC Lymphocytes # 0.6 L D-Dimer 1.14 H Sodium 135 L Carbon Dioxide Anion Gap BUN/Creatinine Ratio Glucose 106 H Calcium Ferritin 394.5 H AST 52 H ALT 39 H Lactate Dehydrogenase 789 H C-Reactive Protein 44.9 H Total Protein Procalcitonin Coronavirus (PCR) SARS-CoV-2 (PCR) 09/25/20 09/25/20 09/25/20 14:20 14:20 15:36 WBC Lymphocytes # D-Dimer Sodium Carbon Dioxide Anion Gap BUN/Creatinine Ratio Glucose Calcium Ferritin AST ALT Lactate Dehydrogenase C-Reactive Protein Total Protein Procalcitonin 0.10 H Coronavirus (PCR) Detected A SARS-CoV-2 (PCR) Detected A 09/26/20 09/26/20 05:45 05:45 WBC 2.9 L Lymphocytes # 0.6 L D-Dimer Sodium Carbon Dioxide 21.0 L Anion Gap 13.00 H BUN/Creatinine Ratio 21.67 H Glucose 139 H Calcium 8.4 L Ferritin AST 38 H ALT Lactate Dehydrogenase C-Reactive Protein Total Protein 6.1 L Procalcitonin Coronavirus (PCR) SARS-CoV-2 (PCR) - Diagnostic Findings Chest x-ray: image reviewed CT scan - chest: image reviewed Assessment and Plan Assessment: 1 Acute CoVID 19 pneumonitis. 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 Wilson Chest x-ray, CAT scans and labs reviewed Continue dexamethasone and Lovenox Continue vitamin supplements, Pepcid, melatonin Titrate down the FiO2 as tolerated We will continue to follow and make further recommendations based on her clinical status I, the cosigning physician, performed a history & physical examination of the patient. Lungs sounds with few bilateral crackles. Maintaining good O2 saturati ons in the 90s on 2 L/m per nasal cannula. I discussed the assessment and plan of care with my nurse practitioner, Clarice Ji. I attest to the above consultation as dictated by her. Time with Patient: Greater than 30
--- NOTE | 2020-09-26 17:50 | PN ---
PROGRESS NOTE I am covering for Dr. Becerril. DATE OF SERVICE: 09/26/2020 This 70-year-old woman who was admitted with acute COVID-19 infection bilateral pneumonia is being closely monitored. The patient had multiple signs of inflammatory markers, including elevated ferritin, elevated AST, ALT, elevated LDH and elevated CRP also. The patient has also been started on remdesivir per Infectious Disease. Patient is being closely monitored at this time. Past medical history reviewed. REVIEW OF SYSTEMS: CARDIOVASCULAR SYSTEM: No angina, palpitations. RESPIRATORY SYSTEM: As mentioned earlier. GI: As mentioned earlier. : No dysuria or retention. NERVOUS SYSTEM: No numbness, weakness. CURRENT MEDICATIONS: Reviewed. They include [place], Ventolin, Xanax, vitamin C, vitamin D3, Hexadrol, Lovenox, Lexapro, Synthroid, Singulair, multivitamins, Protonix, Orazinc. PHYSICAL EXAMINATION: Patient is alert oriented x3. Pulse 78, blood pressure 148/78, respirations 17, temperature 97.4, pulse ox 94% on 2 L. HEENT: Conjunctivae normal. NECK: No jugular venous distention. CARDIOVASCULAR SYSTEM: S1, S2 muffled. RESPIRATORY SYSTEM: Breath sounds diminished at the bases. A few scattered rhonchi and crackles. ABDOMEN: Soft, non-tender. LEGS: No edema. No swelling. NERVOUS SYSTEM: No focal deficit. LABS: WBC 2.3, hemoglobin 13.4 and glucose is 139. ASSESSMENT: 1. Acute COVID-19 infection with acute bilateral COVID-19 pneumonia with acute hypoxic respiratory failure, on remdesivir. 2. Elevated D-dimer with no evidence of pulmonary embolism. 3. Hyponatremia. 4. Elevated AST, ALT, hepatitis secondary to COVID-19. 5. Elevated LDH. 6. Elevated CRP secondary to COVID-19. 7. History of thyroid cancer. 8. History of cough. 9. History of hernia repair. 10.Remote history of nicotine dependence. 11.History of depression. 12.Obesity with body mass index of 31.7. 13.FULL CODE. RECOMMENDATIONS AND DISCUSSION: I recommend to continue current medications, continue with the monitoring, symptomatic treatment. Continue with dexamethasone as well as Lovenox and zinc, vitamin D3. Continue with remdesivir. Continue with bronchodilators. Ensure oxygenation. Repeat labs. Closely follow with Infectious Disease and Pulmonary. Guarded prognosis because of multiple complex medical issues. Further recommendations to follow. MMODL / IJN: [id number] /
[2020-09-26] MEDS: MELATONIN 5 MG TABLET PO SCH (20:54)
--- NOTE | 2020-09-27 00:45 | CONS ---
CONSULTATION DATE OF SERVICE: 09/26/2020 REASON FOR STAY: COVID-19 infection. HISTORY OF PRESENT ILLNESS: The patient is a 70-year-old female presenting to the ER at [facility] yesterday for evaluation of chest pain. The patient mentioned she has not been feeling well since [place] that is 5 days before presentation to hospital. The patient is complaining of feeling extremely weak and tired and no energy. The patient did have a cough which has been mild to moderate intensity, not bringing up any sputum and some shortness of breath. The patient subsequently having increasing shortness of breath and increasing chest pain. More of a pressure and something sharp. Intensity 5- 6 out of 10 and no radiation. The patient denies high-grade fever. No nausea, no vomiting. Did have some diarrhea. With these symptoms, the patient presented to hospital. On arrival to the ER, the patient did have a low grade fever of 99.3. The patient was hypoxic with sats of 90% on room air, currently 95% on 2 L cannula. The patient did have a normal white count with evidence of lymphopenia. D-dimer was 1.14. Kidney function was normal. Ferritin, liver enzymes and LDH were elevated. The patient Montes PCR came back positive. The patient did have a chest x-ray as well as a CT angiogram of the chest that was negative for PE and the patient did have evidence of multifocal ground-glass opacities suspicious for COVID-19. The patient is currently being treated with dexamethasone, Lovenox and zinc. Infectious disease infection was consulted for further management. The patient did mention she is feeling better compared to when she presented to hospital yesterday. REVIEW OF SYSTEMS: Positive points have been mentioned in HPI. Rest of the systems are negative. PAST MEDICAL HISTORY: Past medical history of thyroid cancer. PAST SURGICAL HISTORY: , hernia repair, thyroidectomy. SOCIAL HISTORY: Remote history of smoking. No drinking or drug use. FAMILY HISTORY: No pertinent findings noticed. ALLERGIES: ALLERGIES TO AUGMENTIN. MEDICATIONS: The patient is currently on zinc, Protonix, Theragran, Singulair, melatonin, Lexapro, Lovenox. Dexamethasone, vitamin D3, vitamin C, Xanax and [place]. PHYSICAL EXAMINATION: Blood pressure 129/81 with a pulse of 76, temperature 98.4. He is 95% on 2 L nasal cannula. General description is an elderly female lying in bed in no distress. No tachypnea or accessory muscles of respiration use. HEENT: Examination shows no pallor or scleral icterus. Oral mucous membranes dry. Neck trachea central. No thyromegaly. Lungs unlabored breathing. Clear to auscultation with no wheeze or crackles. Heart S1, S2. Regular rate and rhythm. ABDOMEN: Soft, no tenderness. No guarding. No rigidity. EXTREMITIES: No edema of the feet. Skin examination: No rash or mass palpable. NEUROLOGICAL: The patient is awake, alert, and oriented times three. Mood and affect normal. LABS: Hemoglobin 13.4, white count 12.9. 0.61. D-dimer is 1.14. BUN of 13, creatinine 0.6. Electrolytes have been normal. Liver enzymes are mildly improved though compared to yesterday. DIAGNOSTIC IMPRESSION AND PLAN: Patient admitted to the hospital with increasing shortness of breath and chest pain and cough in this patient with a diagnosis of acute COVID-19 pneumonia. Symptom also has been 5 days ago. The patient does have a mild illness with minimal hypoxemia and is currently showing improvement with current supportive treatment. Started yesterday. PLAN: 1. Keep the patient dexamethasone, Lovenox, zinc, vitamin C. 2. Droplet isolation and respiratory support. 3. We will hold on any Remdesivir at this point. 4. We will follow on clinical condition and further adjust medication if needed. Thank you for this consultation. We will follow this patient along with you. MMPHILIPL / IJN: [id number] /
[2020-09-27] MEDS: LEVOTHYROXINE 75 MCG TAB PO SCH (04:12)
[2020-09-27 07:11] LABS: Basophils % (A) 0 %; Eosinophils % (A) 0 %; HCT 36.5 % (34.0-46.0); HGB 12.3 gm/dL (11.4-16.0); Lymphocytes # (A) 1.2 k/uL (1.0-4.8); Lymphocytes % (A) 18 %; MCH 30.3 pg (25.0-35.0); MCHC 33.8 g/dL (31.0-37.0); MCV 89.7 fL (80.0-100.0); Mean Platelet Volume 6.6; Monocytes # (A) 0.3 k/uL (0-1.0); Monocytes % (A) 5 %; Neutrophils # (A) 5.1 k/uL (1.3-7.7); Neutrophils % (A) 75 %; Platelet Count 271 k/uL (150-450); RBC 4.06 m/uL (3.80-5.40); RDW 12.2 % (11.5-15.5); WBC 6.8 k/uL (3.8-10.6)
[2020-09-27] MEDS: ALBUTEROL HFA INHALER INHALATION SCH ×3 (07:27→19:53)
[2020-09-27] MEDS: CHOLECALCIFEROL 1,000 UNIT TAB PO SCH (08:34)
[2020-09-27] MEDS: MONTELUKAST 10 MG TAB PO SCH (08:34)
[2020-09-27] MEDS: ASCORBIC ACID 500 MG TAB PO SCH (08:34)
[2020-09-27] MEDS: dexAMETHasone 2 MG TAB PO SCH (08:35)
[2020-09-27] MEDS: ENOXAPARIN 40 MG/0.4 ML SYRINGE SQ SCH (08:35)
[2020-09-27] MEDS: ESCITALOPRAM 10 MG TAB PO SCH (08:35)
[2020-09-27] MEDS: ZINC SULFATE 220 MG CAP PO SCH (08:35)
[2020-09-27] MEDS: PANTOPRAZOLE 40 MG TABLET PO SCH (08:35)
[2020-09-27] MEDS: MULTIVITAMINS, THERA 1 EACH TAB PO SCH ×2 (08:35→20:01)
[2020-09-27] MEDS ORDERED: REMDESIVIR 100 MG in SODIUM CHLORIDE 0.9% 250 ML IVPB SCH (10:57)
--- NOTE | 2020-09-27 10:58 | P.PN ---
Subjective Progress Note Date: 09/27/20 Principal diagnosis: CoVID 19 pneumonitis This a very pleasant 70-year-old female patient who follows with Dr. Becerril as her primary care provider. She has a history of thyroid cancer status post thyroidectomy, former smoker, depression. She also had a history of chronic cough and was seen in our office for the same. She had undergone bronchoscopy with BAL back in April 2020 and has been doing well since. She states she had been having symptoms of shortness of breath cough and congestion for several weeks now. Since [place] however she developed increasing shortness of breath, cough, diarrhea, pleuritic-type chest pain and sinus congestion. She presented here to the emergency room yesterday with similar symptoms and worsening chest pain. She did test positive for Coronavirus. Chest x-ray revealed chronic changes with new bilateral multifocal acute infiltrates to the mid and lower lungs. CT angiogram revealed no evidence of pulmonary embolism. Findings were consistent with CoVID 19 infection with multifocal areas of groundglass opacities. White count 2.9. Hemoglobin 13.4. Lymphocytes 0.6. D- dimer 1.14. Sodium 138. Potassium 4.4. Creatinine 0.6. Glucose 139. Ferritin 394. LDH 789. C-reactive protein 44.9. Troponin negative 1. Pro-calcitonin 0.10. She is seen today in consultation on the regular medical floor. She is currently sitting up in bed. Awake and alert in no acute distress. Maintaining O2 saturations in the 90s on 2 L/m per nasal cannula. She's afebrile. Hemodynamically stable. She has been initiated on dexamethas one, Lovenox, vitamin supplements. The patient is seen today 09/27/2020 in follow-up on the regular medical floor. She is currently sitting up in bed. Awake and alert in no acute distress. Maintain good O2 saturations in the mid 90s on 2 L/m per nasal cannula. She's been afebrile. Hemodynamically stable. Blood cultures reveal no growth. White count 6.8. Hemoglobin 12.3. She remains on dexamethasone, Lovenox, vitamin supplements. She is on bronchodilators. Objective - Vital Signs Vital signs: Vital Signs Temp 97.9 F 09/27/20 05:00 Pulse 83 09/27/20 05:00 Resp 20 09/27/20 05:00 BP 148/89 09/27/20 05:00 Pulse Ox 95 09/27/20 05:00 Intake & Output 09/26/20 09/27/20 09/27/20 18:59 06:59 18:59 Intake Total 600 290 Balance 600 290 Weight 71.214 kg Intake: Intake, IV Titration 600 Amount Sodium Chloride 0.9% 1, 600 000 ml @ 50 mls/hr IV . Q20H ONE Rx#:[id number] Oral 290 Other: Voiding Method Toilet Toilet Toilet # Voids 1 # Bowel Movements 1 - Exam GENERAL EXAM: Alert, very pleasant alert, oriented 70-year-old female patient, on 2 L nasal cannula, comfortable in no apparent distress. HEAD: Normocephalic. EYES: Normal reaction of pupils, equal size. NOSE: Clear with pink turbinates. THROAT: No erythema or exudates. NECK: No masses, no JVD. CHEST: No chest wall deformity. LUNGS: Equal air entry with few scattered crackles at the bases. CVS: S1 and S2 normal with no audible murmur, regular rhythm. ABDOMEN: No hepatosplenomegaly, normal bowel sounds, no guarding or rigidity. SPINE: No scoliosis or deformity SKIN: No rashes CENTRAL NERVOUS SYSTEM: Alert and oriented 3. No focal deficits, tone is normal in all 4 extremities. EXTREMITIES: There is no peripheral edema. No clubbing, no cyanosis. Peripheral pulses are intact. - Labs CBC & Chem 7: 09/27/20 06:50 09/26/20 05:45 Labs: Microbiology - Last 24 Hours (Table) 09/25/20 14:20 Blood Culture - Preliminary Blood No Growth after 24 hours 09/25/20 14:20 Blood Culture - Preliminary Blood No Growth after 24 hours Assessment and Plan Assessment: 1 Acute CoVID 19 pneumonitis. Outside the window for Remdesivir . 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 Wilson Currently stable from the pulmonary standpoint Continue dexamethasone and Lovenox Continue vitamin supplements, melatonin Titrate down the FiO2 as tolerated Increase her activity as tolerated We will continue to follow and make further recommendations based on her clinical status I, the cosigning physician, performed a history & physical examination of the patient. Lungs sounds with few bilateral crackles. Maintaining good O2 saturations in the 90s on 2 L/m per nasal cannula. I discussed the assessment and plan of care with my nurse practitioner, Clarice Ji. I attest to the above note as dictated by her.
[2020-09-27 17:37] LABS: African American GFR (CKD) 100.3 (60.0-200.0); Albumin 3.4 g/dL (3.80-4.90); Albumin/Globulin Ratio 1.55 (1.60-3.17); Anion Gap 7.4 mmol/L (4.00-12.00); Calcium 8.4 mg/dL (8.7-10.3); Carbon Dioxide 28.6 mmol/L (21.6-31.8); Globulin 2.2 g/dL (1.6-3.3); Non-African American GFR(CKD) 86.6 (60.0-200.0); Potassium 4.7 mmol/L (3.5-5.5); Total Bilirubin 0.3 mg/dL (0.2-1.2); Total Protein 5.6 g/dL (6.2-8.2)
[2020-09-27] MEDS: MELATONIN 5 MG TABLET PO SCH (20:01)
[2020-09-27 22:36] LABS: BUN/Creat Ratio 32.86 Ratio (12.00-20.00)
--- NOTE | 2020-09-27 22:40 | PN ---
PROGRESS NOTE DATE OF SERVICE: 09/27/2020 REASON FOR FOLLOWUP: COVID-19 pneumonia. INTERVAL HISTORY: The patient is currently afebrile. The patient is breathing more comfortably, feeling better. The patient denies having any chest pain or shortness of breath. Minimal cough. No abdominal pain or diarrhea. PHYSICAL EXAMINATION: Her blood pressure is 124/81, pulse of 62, temperature 98.2. She is 97% on 2 L nasal cannula. General description is an elderly female lying in bed in no distress. RESPIRATORY SYSTEM: Unlabored breathing with decreased intensity of breath sounds. No wheeze. HEART: S1, S2. Regular rate and rhythm. ABDOMEN: Soft. No tenderness. LABS: Hemoglobin 12.3, white count 6.8. Creatinine 0.7. DIAGNOSTIC IMPRESSION AND PLAN: Patient with acute COVID-19 pneumonia in this patient who has mild illness and has clinically responded to the current treatment of vitamin C and dexamethasone and Lovenox and zinc; to continue along with respiratory support and monitor clinical course closely. MMODL / IJN: [id number] /
--- NOTE | 2020-09-28 02:27 | P.PN ---
Subjective Progress Note Date: 09/27/20 This is a 70 year old female who was recently admitted with acute Covid 19 bilateral pneumonia and is being closely monitored. Pulmonary and infectious disease following. Patient currently receiving Remdesivir and maintained on Lovenox, dexamethasone, vitamin c & d supplements, and zinc and will continue. Patient is using the incentive spirometer and instructed to continue at least 10 times every hour while awake. Patient continues to become dyspneic with exertion and was found to be 88% on room air with activity. Case management following as patient may need home 02 upon discharge. Will repeat am labs and chest xray. Review of systems: Constitutional: No reports of fatigue, fever, or chills Cardiovascular: No reports of chest pain or palpitations Respiratory: Reports mild shortness of breath GI: No reports of nausea, vomiting, or diarrhea : No reports of dysuria or retention Neurovascular: No reports of weakness or numbness All medications have been reviewed Active Medications Hydrocodone Bitart/Acetaminophen (Hydrocodone/Apap 5-325mg 1 Each Tab) 1 each PO Q6HR PRN PRN Reason: Pain Albuterol Sulfate (Albuterol Hfa Inhaler) 2 puff INHALATION RT-TID [facility] Last Admin: 09/27/20 12:31 Dose: 2 puff Documented by: Alprazolam (Alprazolam 0.25 Mg Tab) 0.25 mg PO TID PRN PRN Reason: Anxiety Ascorbic Acid (Ascorbic Acid 500 Mg Tab) 500 mg PO DAILY [facility] Last Admin: 09/27/20 08:34 Dose: 500 mg Documented by: Cholecalciferol (Cholecalciferol 1,000 Unit Tab) 1,000 unit PO DAILY [facility] Last Admin: 09/27/20 08:34 Dose: 1,000 unit Documented by: Dexamethasone (Dexamethasone 2 Mg Tab) 6 mg PO DAILY [facility] Last Admin: 09/27/20 08:35 Dose: 6 mg Documented by: Enoxaparin Sodium (Enoxaparin 40 Mg/0.4 Ml Syringe) 40 mg SQ DAILY [facility] Last Admin: 09/27/20 08:35 Dose: 40 mg Documented by: Escitalopram Oxalate (Escitalopram 10 Mg Tab) 10 mg PO DAILY [facility] Last Admin: 09/27/20 08:35 Dose: 10 mg Documented by: Levothyroxine Sodium (Levothyroxine 75 Mcg Tab) 75 mcg PO DAILY@0300 [facility] Last Admin: 09/27/20 04:12 Dose: 75 mcg Documented by: Melatonin (Melatonin 5 Mg Tablet) 5 mg PO HS [facility] Last Admin: 09/26/20 20:54 Dose: 5 mg Documented by: Montelukast Sodium (Montelukast 10 Mg Tab) 10 mg PO DAILY [facility] Last Admin: 09/27/20 08:34 Dose: 10 mg Documented by: Multivitamins (Multivitamins, Thera 1 Each Tab) 1 each PO BID [facility] Last Admin: 09/27/20 08:35 Dose: 1 each Documented by: Pantoprazole Sodium (Pantoprazole 40 Mg Tablet) 40 mg PO DAILY@0730 [facility] Last Admin: 09/27/20 08:35 Dose: 40 mg Documented by: Zinc Sulfate (Zinc Sulfate 220 Mg Cap) 220 mg PO DAILY [facility] Last Admin: 09/27/20 08:35 Dose: 220 mg Documented by: Objective - Vital Signs Vital signs: Vital Signs Temp 97.9 F 09/27/20 10:10 Pulse 90 09/27/20 13:50 Resp 20 09/27/20 10:10 BP 134/87 09/27/20 10:10 Pulse Ox 90 L 09/27/20 13:50 Intake & Output 09/26/20 09/27/20 09/27/20 18:59 06:59 18:59 Intake Total 600 290 Balance 600 290 Weight 71.214 kg Intake: Intake, IV Titration 600 Amount Sodium Chloride 0.9% 1, 600 000 ml @ 50 mls/hr IV . Q20H ONE Rx#:[id number] Oral 290 Other: Voiding Method Toilet Toilet Toilet # Voids 1 # Bowel Movements 1 - Exam Gen: This is a 70-year-old female awake, alert and oriented 3, well-developed, well-nourished. Temp is 97.9F, pulse is 69, respirations are 20, blood pressure is 134/87, oxygen saturation is 95% on 2 L via nasal cannula. Patient does fall to 88% on room air with exertion and will continue to evaluate for possible home oxygen therapy once discharged. HEENT: Head is atraumatic, normocephalic. Pupils equal, round. Sclerae is anicteric. NECK: Supple. No JVD. No lymphadenopathy. No thyromegaly. LUNGS: diminished breath sounds bilaterally with some scattered rhonchi noted. No intercostal retractions. HEART: S1, S2 muffled ABDOMEN: Soft. Bowel sounds are present. No masses. No tenderness. EXTREMITIES: No pedal edema. No calf tenderness. NEUROLOGICAL: Patient is awake, alert and oriented x3. Cranial nerves 2 through 12 are grossly intact. - Labs CBC & Chem 7: 09/27/20 06:50 09/27/20 06:50 Labs: Microbiology - Last 24 Hours (Table) 09/25/20 14:20 Blood Culture - Preliminary Blood No Growth after 24 hours 09/25/20 14:20 Blood Culture - Preliminary Blood No Growth after 24 hours Assessment and Plan Assessment: Acute Covid 19 infection with acute bilateral Covid 19 pneumonia with acute hypoxic respiratory failure, on Remdesivir Elevated d-dimer with no evidence of pulmonary embolism Hyponatremia elevated AST, ALT, hepatitis secondary to Covid 19 Elevated LDH elevated CRP secondary to Covid 19 history of thyroid cancer History of cough history of hernia repair remote history of nicotine dependence History of depression Obesity with a body mass index of 31.7 Full code Recommendations and discussion: Recommend continue with current medications, management, and symptomatic treatment. Patient is currently receiving Remdesivir and will continue at this time. Infectious disease and pulmonary following closely. Patient is also main tained on Lovenox along with zinc, vitamin C and D, and dexamethasone. Patient to continue with the use of the incentive spirometer and instructed to use at least 10 times every hour while awake. Patient also educated on laying prone while in bed if possible and able to tolerate. Wean FiO2 as tolerated and patient is currently tolerating room air although becomes slightly dyspneic with exertion. We'll continue to monitor for home O2 possibility. Will repeat am chest xray. Due to multiple complex medical issues, prognosis is guarded. Further recommendations to follow.
[2020-09-28] MEDS: LEVOTHYROXINE 75 MCG TAB PO SCH (02:53)
[2020-09-28 05:47] LABS: Basophils % (A) 0 %; Eosinophils % (A) 0 %; HCT 36.9 % (34.0-46.0); HGB 11.9 gm/dL (11.4-16.0); Lymphocytes # (A) 1.6 k/uL (1.0-4.8); Lymphocytes % (A) 20 %; MCHC 32.1 g/dL (31.0-37.0); MCV 90.4 fL (80.0-100.0); Mean Platelet Volume 6.7; Monocytes # (A) 0.3 k/uL (0-1.0); Monocytes % (A) 4 %; Neutrophils # (A) 5.8 k/uL (1.3-7.7); Neutrophils % (A) 73 %; Platelet Count 300 k/uL (150-450); RBC 4.08 m/uL (3.80-5.40); RDW 12.7 % (11.5-15.5); WBC 7.8 k/uL (3.8-10.6)
--- NOTE | 2020-09-28 07:11 | XR ---
EXAMINATION TYPE: XR chest 1V portable DATE OF EXAM: 09/28/2020 CLINICAL HISTORY: Difficulty breathing progress study. Covid 19 pneumonia. TECHNIQUE: Single AP portable upright view of the chest is obtained. COMPARISON: Chest x-ray and CTA chest from September 25, 2020 and older studies FINDINGS: Multifocal increased opacities bilaterally greatest in the periphery and more prominent in right lung are redemonstrated. Left-sided opacities seen better on CT versus x-ray. New small right pleural effusion. Cardiac silhouette size is more prominent and upper limits of normal currently with atherosclerotic change in the aortic knob. Osseous structures remain intact. IMPRESSION: Persistent right greater than left bilateral multifocal acute infiltrates greatest in the periphery correlating with covid 19 infection. New small right pleural effusion noted.
[2020-09-28] MEDS: ALBUTEROL HFA INHALER INHALATION SCH ×4 (08:14→20:37)
[2020-09-28] MEDS: dexAMETHasone 2 MG TAB PO SCH (09:35)
[2020-09-28] MEDS: MULTIVITAMINS, THERA 1 EACH TAB PO SCH ×2 (09:35→20:04)
[2020-09-28] MEDS: CHOLECALCIFEROL 1,000 UNIT TAB PO SCH (09:35)
[2020-09-28] MEDS: ENOXAPARIN 40 MG/0.4 ML SYRINGE SQ SCH (09:35)
[2020-09-28] MEDS: ASCORBIC ACID 500 MG TAB PO SCH (09:35)
[2020-09-28] MEDS: ZINC SULFATE 220 MG CAP PO SCH (09:35)
[2020-09-28] MEDS: PANTOPRAZOLE 40 MG TABLET PO SCH (09:35)
[2020-09-28] MEDS: MONTELUKAST 10 MG TAB PO SCH (09:35)
[2020-09-28 09:37] LABS: African American GFR (CKD) 100.3 (60.0-200.0); Albumin 3.5 g/dL (3.80-4.90); Albumin/Globulin Ratio 1.75 (1.60-3.17); Anion Gap 5.4 mmol/L (4.00-12.00); BUN/Creat Ratio 28.57 Ratio (12.00-20.00); Calcium 8.4 mg/dL (8.7-10.3); Carbon Dioxide 28.6 mmol/L (21.6-31.8); Non-African American GFR(CKD) 86.6 (60.0-200.0); Potassium 4.5 mmol/L (3.5-5.5); Total Bilirubin 0.3 mg/dL (0.3-1.2); Total Protein 5.5 g/dL (6.2-8.2)
[2020-09-28] MEDS: ESCITALOPRAM 10 MG TAB PO SCH (09:45)
--- NOTE | 2020-09-28 12:04 | P.PN ---
Subjective Progress Note Date: 09/28/20 Principal diagnosis: CoVID 19 pneumonitis This a very pleasant 70-year-old female patient who follows with Dr. Becerril as her primary care provider. She has a history of thyroid cancer status post thyroidectomy, former smoker, depression. She also had a history of chronic cough and was seen in our office for the same. She had undergone bronchoscopy with BAL back in April 2020 and has been doing well since. She states she had been having symptoms of shortness of breath cough and congestion for several weeks now. Since [place] however she developed increasing shortness of breath, cough, diarrhea, pleuritic-type chest pain and sinus congestion. She presented here to the emergency room yesterday with similar symptoms and worsening chest pain. She did test positive for Coronavirus. Chest x-ray revealed chronic changes with new bilateral multifocal acute infiltrates to the mid and lower lungs. CT angiogram revealed no evidence of pulmonary embolism. Findings were consistent with CoVID 19 infection with multifocal areas of groundglass opacities. White count 2.9. Hemoglobin 13.4. Lymphocytes 0.6. D- dimer 1.14. Sodium 138. Potassium 4.4. Creatinine 0.6. Glucose 139. Ferritin 394. LDH 789. C-reactive protein 44.9. Troponin negative 1. Pro-calcitonin 0.10. She is seen today in consultation on the regular medical floor. She is currently sitting up in bed. Awake and alert in no acute distress. Maintaining O2 saturations in the 90s on 2 L/m per nasal cannula. She's afebrile. Hemodynamically stable. She has been initiated on dexamethas one, Lovenox, vitamin supplements. The patient is seen today 09/27/2020 in follow-up on the regular medical floor. She is currently sitting up in bed. Awake and alert in no acute distress. Maintain good O2 saturations in the mid 90s on 2 L/m per nasal cannula. She's been afebrile. Hemodynamically stable. Blood cultures reveal no growth. White count 6.8. Hemoglobin 12.3. She remains on dexamethasone, Lovenox, vitamin supplements. She is on bronchodilators. The patient is seen today 09/28/2020 in follow-up on the regular medical floor. Awake and alert in no acute distress. Maintaining good O2 saturation in the high 90s on 2 L/m per nasal cannula. No worsening shortness of breath, cough or congestion. Chest x-ray reveals persistent right greater than left bilateral multifocal acute infiltrates greatest in the periphery correlating with her CoVID 19 infection. New small right pleural effusion. Blood cultures reveal no growth. White count 7.8. Hemoglobin 11.9. Leukocytes 1.6. Sodium 130. Potassium 4.5. Creatinine 0.70. Glucose 99. She remains on dexamethasone, Lo venox, vitamin supplements. She is on bronchodilators. Objective - Vital Signs Vital signs: Vital Signs Temp 97.8 F 09/28/20 10:32 Pulse 82 09/28/20 10:32 Resp 16 09/28/20 10:32 BP 136/81 09/28/20 10:32 Pulse Ox 93 L 09/28/20 10:32 Intake & Output 09/27/20 09/28/20 09/28/20 18:59 06:59 18:59 Intake Total 600 350 Balance 600 350 Intake: Oral 600 350 Other: Voiding Method Toilet Toilet Toilet # Voids 2 2 - Exam GENERAL EXAM: Alert, very pleasant alert, oriented 70-year-old female patient, on 2 L nasal cannula, comfortable in no apparent distress. HEAD: Normocephalic. EYES: Normal reaction of pupils, equal size. NOSE: Clear with pink turbinates. THROAT: No erythema or exudates. NECK: No masses, no JVD. CHEST: No chest wall deformity. LUNGS: Equal air entry with few scattered crackles at the bases. CVS: S1 and S2 normal with no audible murmur, regular rhythm. ABDOMEN: No hepatosplenomegaly, normal bowel sounds, no guarding or rigidity. SPINE: No scoliosis or deformity SKIN: No rashes CENTRAL NERVOUS SYSTEM: Alert and oriented 3. No focal deficits, tone is normal in all 4 extremities. EXTREMITIES: There is no peripheral edema. No clubbing, no cyanosis. Peripheral pulses are intact. - Labs CBC & Chem 7: 09/28/20 05:18 09/28/20 05:18 Labs: Abnormal Lab Results - Last 24 Hours (Table) 09/27/20 09/28/20 Range/Units 06:50 05:18 BUN/Creatinine Ratio 32.86 H 28.57 H (12.00-20.00) Ratio Glucose 115 H (70-110) mg/dL Calcium 8.4 L 8.4 L (8.7-10.3) mg/dL AST 39 H (13-35) U/L Alkaline Phosphatase 40 L (41-126) U/L Total Protein 5.6 L 5.5 L (6.2-8.2) g/dL Albumin 3.40 L 3.50 L (3.80-4.90) g/dL Albumin/Globulin Ratio 1.55 L (1.60-3.17) g/dL Microbiology - Last 24 Hours (Table) 09/25/20 14:20 Blood Culture - Preliminary Blood No Growth after 48 hours 09/25/20 14:20 Blood Culture - Preliminary Blood No Growth after 48 hours Assessment and Plan Assessment: 1 Acute CoVID 19 pneumonitis. Outside the window for Remdesivir . 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 Wilson Currently stable from the pulmonary standpoint Continue dexamethasone and Lovenox Continue vitamin supplements, melatonin Titrate down the FiO2 as tolerated Increase her activity as tolerated Home once cleared by medicine I, the cosigning physician, performed a history & physical examination of the patient. Lungs sounds with few bilateral crackles. Maintaining good O2 saturations in the 90s on 2 L/m per nasal cannula. I discussed the assessment and plan of care with my nurse practitioner, Clarice Ji. I attest to the above note as dictated by her.
--- NOTE | 2020-09-28 14:03 | PN ---
PROGRESS NOTE DATE OF SERVICE: 09/28/2020 REASON FOR FOLLOWUP: COVID-19 pneumonia. INTERVAL HISTORY: The patient is currently afebrile. Patient is feeling slightly better, breathing comfortably. The patient denies having any chest pain. She did have a cough but not bringing up any sputum. No vomiting. No abdominal pain. No diarrhea. PHYSICAL EXAMINATION: Blood pressure is 136/81 with a pulse of 82, temperature is 97.8. She is 93% on 3 liters nasal cannula. General description is a middle-age female lying in bed in no distress. Respiratory system: Unlabored breathing. Coarse breath sounds with no wheeze. Heart S1, S2. Regular rate and rhythm. Abdomen is soft, no tenderness. LABS: Hemoglobin 11.2, white count 10.8, BUN of 20, creatinine 0.7. IMPRESSION/PLAN: Patient with acute COVID-19 pneumonia this patient clinically responded to the dexamethasone and Lovenox. Discharge the patient with course of oral dexamethasone, along with oxygen on discharge. Continue supportive care. MMODL / IJN: [id number] /
--- NOTE | 2020-09-28 15:35 | P.PN ---
Subjective Progress Note Date: 09/28/20 This is a 70 year old female who was recently admitted with acute Covid 19 bilateral pneumonia and is being closely monitored. Pulmonary and infectious disease following. Patient currently receiving Remdesivir and maintained on Lovenox, dexamethasone, vitamin c & d supplements, and zinc and will continue. Patient is using the incentive spirometer and instructed to continue at least 10 times every hour while awake. Patient continues to become dyspneic with exertion and was found to be 88% on room air with activity. Case management following as patient may need home 02 upon discharge. Will repeat am labs and chest xray. 09/28/2020 Patient is seen and evaluated and follow-up currently maintained on 2 L of oxygen via nasal cannula. Patient is being followed by pulmonary along with infectious disease. Patient is maintained on dexamethasone along with Lovenox, vitamin C, vitamin D, and zinc supplements. Patient did receive 1 dose of Remdesivir although currently being closely monitored off of it. Patient continues to be dyspneic with exertion and has been provided oxygen at the bedside once patient is stabilized and discharged. Labs within normal limits today. Incentive spirometer ordered and patient instructed to use at least 10 times every hour while awake. Increase activity as tolerated as well. Patient is afebrile. No reports of chest pain or palpitations noted. Review of systems: Constitutional: No reports of fatigue, fever, or chills Cardiovascular: No reports of chest pain or palpitations Respiratory: Reports continued shortness of breath along with bilateral side rib pain GI: No reports of nausea, vomiting, or diarrhea : No reports of dysuria or retention Neurovascular: No reports of weakness or numbness All medications have been reviewed Active Medications Hydrocodone Bitart/Acetaminophen (Hydrocodone/Apap 5-325mg 1 Each Tab) 1 each PO Q6HR PRN PRN Reason: Pain Albuterol Sulfate (Albuterol Hfa Inhaler) 2 puff INHALATION RT-TID [facility] Last Admin: 09/28/20 12:10 Dose: 2 puff Documented by: Alprazolam (Alprazolam 0.25 Mg Tab) 0.25 mg PO TID PRN PRN Reason: Anxiety Ascorbic Acid (Ascorbic Acid 500 Mg Tab) 500 mg PO DAILY [facility] Last Admin: 09/28/20 09:35 Dose: 500 mg Documented by: Cholecalciferol (Cholecalciferol 1,000 Unit Tab) 1,000 unit PO DAILY [facility] Last Admin: 09/28/20 09:35 Dose: 1,000 unit Documented by: Dexamethasone (Dexamethasone 2 Mg Tab) 6 mg PO DAILY [facility] Last Admin: 09/28/20 09:35 Dose: 6 mg Documented by: Enoxaparin Sodium (Enoxaparin 40 Mg/0.4 Ml Syringe) 40 mg SQ DAILY [facility] Last Admin: 09/28/20 09:35 Dose: 40 mg Documented by: Escitalopram Oxalate (Escitalopram 10 Mg Tab) 10 mg PO DAILY [facility] Last Admin: 09/28/20 09:45 Dose: 10 mg Documented by: Levothyroxine Sodium (Levothyroxine 75 Mcg Tab) 75 mcg PO DAILY@0300 [facility] Last Admin: 09/28/20 02:53 Dose: 75 mcg Documented by: Melatonin (Melatonin 5 Mg Tablet) 5 mg PO HS [facility] Last Admin: 09/27/20 20:01 Dose: 5 mg Documented by: Montelukast Sodium (Montelukast 10 Mg Tab) 10 mg PO DAILY [facility] Last Admin: 09/28/20 09:35 Dose: 10 mg Documented by: Multivitamins (Multivitamins, Thera 1 Each Tab) 1 each PO BID [facility] Last Admin: 09/28/20 09:35 Dose: 1 each Documented by: Pantoprazole Sodium (Pantoprazole 40 Mg Tablet) 40 mg PO DAILY@0730 [facility] Last Admin: 09/28/20 09:35 Dose: 40 mg Documented by: Zinc Sulfate (Zinc Sulfate 220 Mg Cap) 220 mg PO DAILY [facility] Last Admin: 09/28/20 09:35 Dose: 220 mg Documented by: Objective - Vital Signs Vital signs: Vital Signs Temp 97.8 F 09/28/20 10:32 Pulse 82 09/28/20 10:32 Resp 16 09/28/20 10:32 BP 136/81 09/28/20 10:32 Pulse Ox 93 L 09/28/20 10:32 Intake & Output 09/27/20 09/28/20 09/28/20 18:59 06:59 18:59 Intake Total 600 350 Balance 600 350 Intake: Oral 600 350 Other: Voiding Method Toilet Toilet Toilet # Voids 2 2 - Exam Gen: This is a 70-year-old female awake, alert and oriented 3, well-developed, well-nourished. Temp is 97.8F, pulse is 82, respirations are 16, blood pressure is 136/81, oxygen saturation is 93% on 3 L via nasal cannula. HEENT: Head is atraumatic, normocephalic. Pupils equal, round. Sclerae is anicteric. NECK: Supple. No JVD. No lymphadenopathy. No thyromegaly. LUNGS: diminished breath sounds bilaterally with some scattered rhonchi noted. No intercostal retractions. HEART: S1, S2 muffled ABDOMEN: Soft. Bowel sounds are present. No masses. No tenderness. EXTREMITIES: No pedal edema. No calf tenderness. NEUROLOGICAL: Patient is awake, alert and oriented x3. Cranial nerves 2 through 12 are grossly intact. - Labs CBC & Chem 7: 09/28/20 05:18 09/28/20 05:18 Labs: Abnormal Lab Results - Last 24 Hours (Table) 09/27/20 09/28/20 Range/Units 06:50 05:18 BUN/Creatinine Ratio 32.86 H 28.57 H (12.00-20.00) Ratio Glucose 115 H (70-110) mg/dL Calcium 8.4 L 8.4 L (8.7-10.3) mg/dL AST 39 H (13-35) U/L Alkaline Phosphatase 40 L (41-126) U/L Total Protein 5.6 L 5.5 L (6.2-8.2) g/dL Albumin 3.40 L 3.50 L (3.80-4.90) g/dL Albumin/Globulin Ratio 1.55 L (1.60-3.17) g/dL Microbiology - Last 24 Hours (Table) 09/25/20 14:20 Blood Culture - Preliminary Blood No Growth after 48 hours 09/25/20 14:20 Blood Culture - Preliminary Blood No Growth after 48 hours Assessment and Plan Assessment: Acute Covid 19 infection with acute bilateral Covid 19 pneumonia with acute hypoxic respiratory failure Elevated d-dimer with no evidence of pulmonary embolism Hyponatremia elevated AST, ALT, hepatitis secondary to Covid 19 Elevated LDH elevated CRP secondary to Covid 19 history of thyroid cancer History of cough history of hernia repair remote history of nicotine dependence History of depression Obesity with a body mass index of 31.7 Full code Recommendations and discussion: Recommend continue with current medications, management, and symptomatic treatment. Patient is currently off of Remdesivir and will continue to monitor closely at this time. Infectious disease and pulmonary following closely. Patient is also maintained on Lovenox along with zinc, vitamin C and D, and dexamethasone. Patient to continue with the use of the incentive spirometer and instructed to use at least 10 times every hour while awake. Wean FiO2 as tolerated and patient is currently tolerating room air although becomes slightly dyspneic with exertion. home O2 was delivered to the patient's bedside. Patient is quite concerned as her is sick at home and she has no one to care for her. Due to multiple complex medical issues, prognosis is guarded. Kiara heaton recommendations to follow. Possible discharge in 24 hours.
[2020-09-28] MEDS: MELATONIN 5 MG TABLET PO SCH (20:04)
[2020-09-29] MEDS: LEVOTHYROXINE 75 MCG TAB PO SCH (04:36)
[2020-09-29] MEDS: ALBUTEROL HFA INHALER INHALATION SCH ×2 (07:43→12:28)
[2020-09-29] MEDS: CHOLECALCIFEROL 1,000 UNIT TAB PO SCH (09:07)
[2020-09-29] MEDS: ENOXAPARIN 40 MG/0.4 ML SYRINGE SQ SCH (09:07)
[2020-09-29] MEDS: MULTIVITAMINS, THERA 1 EACH TAB PO SCH (09:07)
[2020-09-29] MEDS: ASCORBIC ACID 500 MG TAB PO SCH (09:07)
[2020-09-29] MEDS: ESCITALOPRAM 10 MG TAB PO SCH (09:07)
[2020-09-29] MEDS: PANTOPRAZOLE 40 MG TABLET PO SCH (09:07)
[2020-09-29] MEDS: ZINC SULFATE 220 MG CAP PO SCH (09:07)
[2020-09-29] MEDS: dexAMETHasone 2 MG TAB PO SCH (09:07)
[2020-09-29] MEDS: MONTELUKAST 10 MG TAB PO SCH (09:22)
[2020-09-29 11:32] VITALS: BP 147/84; RESP 16; TEMP 98.5
[2020-09-29 11:35] VITALS: PULSE 104
--- NOTE | 2020-09-29 12:26 | P.PN ---
Subjective Progress Note Date: 09/29/20 Principal diagnosis: CoVID 19 pneumonitis This a very pleasant 70-year-old female patient who follows with Dr. Becerril as her primary care provider. She has a history of thyroid cancer status post thyroidectomy, former smoker, depression. She also had a history of chronic cough and was seen in our office for the same. She had undergone bronchoscopy with BAL back in April 2020 and has been doing well since. She states she had been having symptoms of shortness of breath cough and congestion for several weeks now. Since [place] however she developed increasing shortness of breath, cough, diarrhea, pleuritic-type chest pain and sinus congestion. She presented here to the emergency room yesterday with similar symptoms and worsening chest pain. She did test positive for Coronavirus. Chest x-ray revealed chronic changes with new bilateral multifocal acute infiltrates to the mid and lower lungs. CT angiogram revealed no evidence of pulmonary embolism. Findings were consistent with CoVID 19 infection with multifocal areas of groundglass opacities. White count 2.9. Hemoglobin 13.4. Lymphocytes 0.6. D- dimer 1.14. Sodium 138. Potassium 4.4. Creatinine 0.6. Glucose 139. Ferritin 394. LDH 789. C-reactive protein 44.9. Troponin negative 1. Pro-calcitonin 0.10. She is seen today in consultation on the regular medical floor. She is currently sitting up in bed. Awake and alert in no acute distress. Maintaining O2 saturations in the 90s on 2 L/m per nasal cannula. She's afebrile. Hemodynamically stable. She has been initiated on dexamethas one, Lovenox, vitamin supplements. The patient is seen today 09/27/2020 in follow-up on the regular medical floor. She is currently sitting up in bed. Awake and alert in no acute distress. Maintain good O2 saturations in the mid 90s on 2 L/m per nasal cannula. She's been afebrile. Hemodynamically stable. Blood cultures reveal no growth. White count 6.8. Hemoglobin 12.3. She remains on dexamethasone, Lovenox, vitamin supplements. She is on bronchodilators. The patient is seen today 09/28/2020 in follow-up on the regular medical floor. Awake and alert in no acute distress. Maintaining good O2 saturation in the high 90s on 2 L/m per nasal cannula. No worsening shortness of breath, cough or congestion. Chest x-ray reveals persistent right greater than left bilateral multifocal acute infiltrates greatest in the periphery correlating with her CoVID 19 infection. New small right pleural effusion. Blood cultures reveal no growth. White count 7.8. Hemoglobin 11.9. Leukocytes 1.6. Sodium 130. Potassium 4.5. Creatinine 0.70. Glucose 99. She remains on dexamethasone, Lo venox, vitamin supplements. She is on bronchodilators. The patient is seen today 09/29/2020 in follow-up on the regular medical floor. She is currently sitting up in bed. Awake and alert in no acute distress. No worsening shortness of breath, cough or congestion. No fever chills or night sweats. She is maintaining good O2 saturations in the mid 90s on 2 L/m per nasal cannula. Stayed in the 90s on a 6 minute walk. No new labs today. She remains on dexamethasone, Lovenox, vitamin supplements. She is on bronchodilators. Objective - Vital Signs Vital signs: Vital Signs Temp 98.5 F 09/29/20 11:25 Pulse 104 H 09/29/20 11:32 Resp 16 09/29/20 11:25 BP 147/84 09/29/20 11:25 Pulse Ox 91 L 09/29/20 11:32 Intake & Output 09/28/20 09/29/20 09/29/20 18:59 06:59 18:59 Intake Total 240 Output Total 1 Balance 240 -1 Intake: Oral 240 Output: Urine/Stool Mix 1 Other: Voiding Method Toilet Toilet # Voids 1 - Exam GENERAL EXAM: Alert, very pleasant alert, oriented 70-year-old female patient, on room air, comfortable in no apparent distress. HEAD: Normocephalic. EYES: Normal reaction of pupils, equal size. NOSE: Clear with pink turbinates. THROAT: No erythema or exudates. NECK: No masses, no JVD. CHEST: No chest wall deformity. LUNGS: Equal air entry with few scattered crackles at the bases. CVS: S1 and S2 normal with no audible murmur, regular rhythm. ABDOMEN: No hepatosplenomegaly, normal bowel sounds, no guarding or rigidity. SPINE: No scoliosis or deformity SKIN: No rashes CENTRAL NERVOUS SYSTEM: Alert and oriented 3. No focal deficits, tone is normal in all 4 extremities. EXTREMITIES: There is no peripheral edema. No clubbing, no cyanosis. Peripheral pulses are intact. - Labs CBC & Chem 7: 09/28/20 05:18 09/28/20 05:18 Labs: Microbiology - Last 24 Hours (Table) 09/25/20 14:20 Blood Culture - Preliminary Blood No Growth after 72 hours 09/25/20 14:20 Blood Culture - Preliminary Blood No Growth after 72 hours Assessment and Plan Assessment: 1 Acute CoVID 19 pneumonitis. Outside the window for Remdesivir . 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 Wilson Currently stable from the pulmonary standpoint Assessment possible home oxygen Follow-up in our office in 1-2 weeks' time. Home once cleared by medicine I, the cosigning physician, performed a history & physical examination of the patient. Lungs sounds with few bilateral crackles. Maintaining good O2 saturations in the 90s on room air. I discussed the assessment and plan of care with my nurse practitioner, Clarice Ji. I attest to the above note as dictated by her.
--- NOTE | 2020-09-29 18:13 | DS ---
DISCHARGE SUMMARY DATE OF SERVICE: 09/29/2020 FINAL DIAGNOSIS: 1. Acute COVID-19 infection with acute bilateral COVID-19 with acute hypoxic respiratory failure present on admission, improved. 2. Elevated D-dimer with no evidence of pulmonary embolism. 3. Hyponatremia. 4. Increased AST, ALT, hepatitis secondary to COVID-19. 5. Elevated LDH. 6. Increased CRP secondary to COVID-19. 7. History of thyroid cancer. 8. History of hernia repair. 9. Remote history of nicotine dependence. 10.History of depression. 11.Obesity with body mass index of 31.7. 12.FULL CODE. DISCHARGE DISPOSITION: The patient is discharged in stable condition. Guarded prognosis. Discharge cleared by multiple consultants including Pulmonary and Infectious Disease. HISTORY OF PRESENT ILLNESS: This is 70-year-old woman with a past medical history of multiple medical problems, being followed by Dr. Becerril in the outpatient setting. The patient was admitted with acute COVID-19 pneumonia and acute bilateral pneumonia and acute hypoxic respiratory failure, treated symptomatically. Patient improved significantly. Remdesivir was given initially but however discontinued by Infectious Disease because of the patient's improvement. Please refer to Infectious Diseases notes for further information. Otherwise pulmonary Dr. Wilson also saw the patient. PHYSICAL EXAMINATION: On exam, vitals are stable. Cardiovascular S1 and S2. Abdomen soft. Respiratory a few rhonchi. DISCHARGE ADVICE: 1. Cardiac diet. 2. Activity limited until followup. 3. Follow up with Dr. Becerril 1-2 days. 4. Follow up with Dr. Wilson as recommended. 5. Follow up with Infectious Disease as recommended. DISCHARGE MEDICATIONS ARE: 1. Supplements as before. 2. Calcium carbonate 1 tablet p.o. daily. 3. Garlic 1 p.o. daily. 4. Lexapro 10 mg daily. 5. Multivitamins 1 p.o. daily. 6. Protonix 40 mg daily. 7. Singulair 10 mg daily. 8. Synthroid 75 mcg p.o. daily. 9. Hexadrol 6 mg p.o. daily. 10.Oral zinc 220 mg p.o. daily. 11.Albuterol 2 puffs q.i.d. and p.r.n. 12.Vitamin C 500 mg p.o. daily. 13.Vitamin D3 1000 units p.o. daily. MMODL / IJN: [id number] /
== END 2020-09-29 13:45 | disposition home or self-care (01) | DRG 177 ==
LOC: EC 13:39 → 6NMEDSUR 17:05
PROVIDERS: ADMIT Hospitalist; ATTEND Hospitalist
PROC: XW033E5 Introduction of Remdesivir Anti-infective into Peripheral Vein, Percutaneous Approach, New Technology Group 5 (ICD-10-PCS; principal; 2020-09-25)
DX: U07.1 COVID-19 (principal); J96.01 Acute respiratory failure with hypoxia; J12.82 Pneumonia due to coronavirus disease 2019; E87.1 Hypo-osmolality and hyponatremia; E89.0 Postprocedural hypothyroidism; D72.810 Lymphocytopenia; F32.9 Major depressive disorder, single episode, unspecified; E66.9 Obesity, unspecified; K75.9 Inflammatory liver disease, unspecified; Z79.890 Hormone replacement therapy; Z79.899 Other long term (current) drug therapy; Z88.0 Allergy status to penicillin; Z85.850 Personal history of malignant neoplasm of thyroid; Z87.891 Personal history of nicotine dependence; Z87.19 Personal history of other diseases of the digestive system; Z83.3 Family history of diabetes mellitus; Z98.891 History of uterine scar from previous surgery; Z98.890 Other specified postprocedural states; Z68.31 Body mass index [BMI] 31.0-31.9, adult
CPT/HCPCS: 36415; 71045; 71275; 80053; 82728; 83605; 83615; 83735; 84145; 84484; 85025; 85379; 85610; 85730; 86140; 87040; 87636; 93005; 94640; 99291

== ENCOUNTER → 2020-12-11 | Outpatient (CLI) | payer MEDICARE, BC ==
[2020-12-11 22:29] LABS: Albumin 4.3 g/dL (3.80-4.90); Albumin/Globulin Ratio 1.65 (1.60-3.17); Anion Gap 9.1 mmol/L (4.00-12.00); BUN/Creat Ratio 22.22 Ratio (12.00-20.00); Calcium 9.2 mg/dL (8.7-10.3); Carbon Dioxide 27.9 mmol/L (21.6-31.8); Globulin 2.6 g/dL (1.6-3.3); Non-African American GFR(CKD) 63.9 (60.0-200.0); Total Bilirubin 0.3 mg/dL (0.2-1.2); Total Protein 6.9 g/dL (6.2-8.2)
== END | disposition home or self-care (01) ==
LOC: LABWHC1 11:10
PROVIDERS: ATTEND Internal Medicine Endocrinology, Diabetes & Metabolism
DX: E03.8 Other specified hypothyroidism (principal); C73 Malignant neoplasm of thyroid gland
CPT/HCPCS: 36415; 80053; 82308; 84443

== ENCOUNTER → 2020-12-11 | Outpatient (CLI) | payer MEDICARE, BC ==
--- NOTE | 2020-12-11 13:45 | XR ---
EXAMINATION TYPE: XR chest 2V DATE OF EXAM: 12/11/2020 COMPARISON: 09/28/2020 INDICATION: Postpneumonia TECHNIQUE: Frontal and lateral views of the chest are obtained. FINDINGS: The heart size is normal. The pulmonary vasculature is normal. The lungs are clear. Previous right lung infiltrate has resolved IMPRESSION: 1. Resolution previous right pneumonia
== END ==
LOC: RADXRMAIN 12:34
PROVIDERS: ATTEND Family Medicine
DX: Z98.890 Other specified postprocedural states (principal); J18.9 Pneumonia, unspecified organism
CPT/HCPCS: 71046

== ENCOUNTER → 2021-04-23 | Outpatient (CLI) | payer MEDICARE, BC ==
--- NOTE | 2021-04-25 08:44 | BD ---
EXAMINATION TYPE: Axial Bone Density DATE OF EXAM: 04/23/2021 COMPARISON: CLINICAL HISTORY: Height: 58.5 IN Weight: 157 LBS RISK FACTORS HISTORY OF: Active: YES Postmenopausal woman: AGE 50 MEDICATIONS: Thyroid Medications: YES Which medication: Levothyroxine How Lon YEARS Additional Medications: LEVOTHYROXINE, CALCIUM, BLOOD PRESSURE MEDS, LEXAPRO, EXAM MEASUREMENTS: Bone mineral densitometry was performed using the [employer] System. Bone mineral density as measured about the Lumbar spine is: ----- L1-L4(G/cm2): 1.256 T Score Values are as follows: ----- L2: -0.1 ----- L3: 0.8 ----- L4: 1.1 ----- L1-L4: 0.6 Bone mineral density has: Increased 8.8% since study of: 09/07/2015 Bone mineral density about the R hip (g/cm2): 0.974 Bone mineral density about the L hip (g/cm2): 0.902 T Score values are as follows: -----R Neck: -0.5 -----L Neck: -1.0 -----R Total: 0.2 -----L Total: 0.1 Bone mineral density has: Decreased -4.5% since study of: 09/07/2015 IMPRESSION: Normal (Values between +1 and -1 indicate normal bone mass). Consider repeating this study in 5 year s or sooner if there is some new clinical indication. NOTE: T-SCORE=SD OF THE YOUNG ADULT MEAN.
--- NOTE | 2021-04-25 11:57 | MM ---
Reason for exam: screening (asymptomatic). Last mammogram was performed 3 years and 4 months ago. History: Patient is postmenopausal and has history of other cancer at age 65. Taking other hormone for 8 months beginning at age 65. Physical Findings: A clinical breast exam by your physician is recommended on an annual basis and results should be correlated with mammographic findings. MG Screening Mammo w CAD Bilateral CC and MLO view(s) were taken. Prior study comparison: December 08, 2017, bilateral MG 3d screening mammo w/cad. September 19, 2015, right breast MG 3d work up w/cad RT. The breast tissue is heterogeneously dense. This may lower the sensitivity of mammography. Stable benign calcifications. There is no discrete abnormality. No significant changes when compared with prior studies. ASSESSMENT: Benign, BI-RAD 2 RECOMMENDATION: Routine screening mammogram of both breasts in 1 year.
== END | disposition home or self-care (01) ==
LOC: RADMAMWWP 14:27
PROVIDERS: ATTEND Family Medicine
DX: Z12.31 Encounter for screening mammogram for malignant neoplasm of breast (principal); Z78.0 Asymptomatic menopausal state
CPT/HCPCS: 77067; 77080

== ENCOUNTER → 2021-05-22 | Outpatient (CLI) | payer MEDICARE, BC ==
--- NOTE | 2021-05-22 14:43 | CT ---
EXAMINATION TYPE: CT chest wo con DATE OF EXAM: 05/22/2021 COMPARISON: 09/25/2020 HISTORY: 70-year-old female Chronic cough. TECHNIQUE: High-resolution axial scanning of the chest without IV contrast utilizing 1 mm slice thick ness and 1 cm gap per HRCT protocol. Both prone and supine imaging was performed. CT DLP: 485.4 mGycm Automated exposure control for dose reduction was used. FINDINGS: Heart normal size without pericardial effusion. Aorta normal caliber with conventional arch vessel branching anatomy. Lower paratracheal lymph nodes measure up to 1.3 cm, not significantly changed. Small metal clips in the thyroid bed relating to prior prior surgery. All of the patchy peripheral groundglass changes seen on the CT of 09/25/2020 percent resolved.. No honeycombing, dominant groundglass densities, cystic change, centrilobular nodularity, tree-in-bud opacities, or thickening of the peribronchovascular bundles is identified. No consolidation or pleural effusion. Mild strandy atelectasis in the lower lungs. Visualized upper abdomen shows no gross abnormality. Bones: No osseous destructive process. IMPRESSION: 1. RESOLUTION OF THE PREVIOUS BILATERAL INFILTRATES SEEN ON 09/25/2020. 2. LOWER PARATRACHEAL LYMPH NODES ARE BORDERLINE TO MILDLY ENLARGED MEASURING UP TO 1.3 CM, NOT SIGNI FICANTLY CHANGED FROM 09/25/2020, PROBABLY REACTIVE/POST INFLAMMATORY. 3. NO ACUTE PULMONARY PROCESS. NO SPECIFIC HRCT FINDINGS OF INTERSTITIAL LUNG DISEASE. SOME STRANDY B IBASILAR AREAS OF ATELECTASIS ARE NOTED.
== END | disposition home or self-care (01) ==
LOC: RADCTMAIN 12:25
PROVIDERS: ATTEND Internal Medicine Critical Care Medicine
DX: R59.0 Localized enlarged lymph nodes (principal)
CPT/HCPCS: 71250

== ENCOUNTER 2021-05-29 12:24 | Day surgery (SDC) | payer MEDICARE, BC ==
[2021-05-27 09:48] VITALS: BMI 32.3
[~2021-05-29 12:24] MED LIST changes: +ATROPINE SULFATE 0.4 MG/ML 1 ML VIAL IM ONE; -DEXAMETHASONE SOD PHOSPHATE 10 MG/ML 1 ML VIAL IV ONE; -LIDOCAINE 1% (10MG/ML) FOR IV START INTRADERMA PRN; -ONDANSETRON 4 MG/2 ML VIAL IVP ONE; -SODIUM CHLORIDE 0.9% 1,000 ML IV SCH
[2021-05-29] MEDS ORDERED: LIDOCAINE 1% (10MG/ML) FOR IV START INTRADERMA ONE (13:00)
[2021-05-29] MEDS ORDERED: LIDOCAINE 1% INJ 10MG/ML (20 ML MDV) ONE (13:11)
[2021-05-29] MEDS ORDERED: PROPOFOL 10 MG/ML 20 ML VIAL IV ONE (13:11)
[2021-05-29] MEDS ORDERED: SUCCINYLCHOLINE CHLORIDE 100 MG/5 ML SYR IV ONE (13:11)
[2021-05-29 13:58] VITALS: TEMP 96.8
[2021-05-29 14:08] VITALS: RESP 16
--- NOTE | 2021-05-29 14:20 | XR ---
EXAMINATION TYPE: XR chest 1V portable DATE OF EXAM: 05/29/2021 HISTORY: Shortness of breath. COMPARISON: 12/11/2020 TECHNIQUE: Single view of the chest is submitted. FINDINGS: Demonstrated are scattered senescent parenchymal change. There is no evidence for focal infiltrate. The heart is stable. Hilar and mediastinal structures are within normal limits. Degenerative changes are seen of the dorsal spine. IMPRESSION: 1. Chronic changes without evidence for acute pulmonary disease.
[2021-05-29 14:41] VITALS: BP 125/83; PULSE 93
[2021-05-29 20:37] LABS: Appearance,BF Hazy; Color,BF Colorless
[2021-05-29 20:38] LABS: Nucleated Cells, Body Fluid 75 /uL; RBC, Body Fluid 11 /uL
[2021-05-29 20:41] LABS: Mononuclear WBC,Body Fluid 30 %; Polynuclear WBC,Body Fluid 70 %; Total Cells Counted,Body Fluid 100
--- NOTE | 2021-05-30 02:16 | PCN ---
PROCEDURE NOTE PROCEDURE: Bronchoscopy, airway examination, therapeutic lavage, BAL right middle lobe endobronchial biopsies from the tonia the right upper lobe from the bronchus intermedius. PREOP DIAGNOSIS: Chronic bronchitis. POSTOP DIAGNOSIS: Chronic bronchitis. The patient had given informed consent. OPERATORS: Dr. Wilson and Dr. To and Dr. Ji. DESCRIPTION OF PROCEDURE: The procedure was done in room #1. There was informed consent and universal timeout. The patient did get a general anesthesia. After the patient was on the anesthesia machine, having been intubated by Anesthesia, the bronchoscope was inserted through the bronchoscope adapter connected to the endotracheal tube. The bronchoscope was taken down the endotracheal tube. There was a thorough inspection of both lungs, including the right upper lobe and its 3 segments, right middle lobe and its 2 segments, right lower lobe and its 5 segments, left upper lobe and its 2 segments, lingula and its 2 segments and left lower lobe and its 4 segments. There were thick secretions noted particularly in the left lung, mostly in the left lower lobe. They were suctioned with some difficulty. After topicalization of the airways, the bronchoscope was used to suction any additional secretions that were noted throughout both lungs. Next the bronchoscope was wedged into the right middle lobe. We did a formal BAL. Thirty mL of purulent looking fluid was recovered. Finally, we used the biopsy forceps to do multiple endobronchial biopsies in the area of the tonia the right upper lobe from the bronchus intermedius. There was minimal bleeding. The patient tolerated the procedure well. There was no immediate complication. The patient will be recovered. MMODL / IJN: [id number] /
== END 2021-05-29 15:05 | disposition home or self-care (01) ==
LOC: ORWHC2ENDO 12:24
PROVIDERS: ATTEND Internal Medicine Critical Care Medicine
DX: J42 Unspecified chronic bronchitis (principal); J39.8 Other specified diseases of upper respiratory tract; F34.1 Dysthymic disorder; J84.10 Pulmonary fibrosis, unspecified; K21.9 Gastro-esophageal reflux disease without esophagitis; Z85.850 Personal history of malignant neoplasm of thyroid; Z79.890 Hormone replacement therapy; Z79.899 Other long term (current) drug therapy; J45.909 Unspecified asthma, uncomplicated; Z86.16 Personal history of COVID-19; Z98.890 Other specified postprocedural states
CPT/HCPCS: 88108; 88305; 89050; 87070; 87205; 71045; 31625; 31624; J0461; J2001; J0330; J2704

== ENCOUNTER → 2021-10-28 | Outpatient (CLI) | payer MEDICARE ==
[2021-10-28 15:01] LABS: Chol/HDL Ratio 5.81 Ratio; LDL Cholesterol,Calculated 201.4 mg/dL (0.0-131.0)
== END | disposition home or self-care (01) ==
LOC: LABWHC1 09:07
PROVIDERS: ATTEND Family Medicine
DX: Z13.220 Encounter for screening for lipoid disorders (principal)
CPT/HCPCS: 36415; 80061

== ENCOUNTER → 2021-10-30 | Outpatient (CLI) | payer MEDICARE ==
--- NOTE | 2021-10-30 12:30 | US ---
EXAMINATION TYPE: US thyroid st tissue head/neck DATE OF EXAM: 10/30/2021 COMPARISON: US Thyroid 2016 CLINICAL HISTORY: C73 MALIGNANT NEOPLASM OF THYROID GLAND. Hx of thyroid cancer; Thyroidectomy 2013 GLAND SIZE: Right Lobe: Surgically absent Left Lobe: Surgically absent Isthmus Thickness: Surgically absent Bilateral neck scanned, no evidence of lymphadenopathy. No evidence of residual thyroid tissue or lymphadenopathy. IMPRESSION: No evidence of residual thyroid tissue or lymphadenopathy.
== END | disposition home or self-care (01) ==
LOC: RADUSWWP 12:01
PROVIDERS: ATTEND Internal Medicine Endocrinology, Diabetes & Metabolism
DX: C73 Malignant neoplasm of thyroid gland (principal); E89.0 Postprocedural hypothyroidism
CPT/HCPCS: 76536

== ENCOUNTER → 2022-02-03 | Outpatient (CLI) | payer MEDICARE ==
--- NOTE | 2022-02-03 07:45 | XR ---
EXAMINATION TYPE: XR chest 2V DATE OF EXAM: 02/03/2022 COMPARISON: Chest and upper abdominal pain. HISTORY: Chest x-ray May 29, 2021 TECHNIQUE: Frontal and lateral views of the chest are obtained. FINDINGS: There is no suspicious new focal air space opacity, pleural effusion, or pneumothorax seen . The cardiac silhouette size remains within normal limits. Overlying bra strap. The osseous struct ures are intact. Surgical clips in the paratracheal region near the cervical thoracic junction are re demonstrated. IMPRESSION: No acute process. No significant change from prior.
--- NOTE | 2022-02-03 07:51 | US ---
EXAMINATION TYPE: US abdomen complete DATE OF EXAM: 02/03/2022 COMPARISON: CT abdomen June 29, 2020 CLINICAL HISTORY: R10.10 UPPER ABDOMINAL PAIN. LUQ pain ongoing for 3 years EXAM MEASUREMENTS: Liver Length: 14.8 cm Gallbladder Wall: 0.2 cm CBD: 0.6 cm Spleen: 12.3 cm Right Kidney: 9.8 x 3.9 x 4.3 cm Left Kidney: 9.7 x 3.8 x 4.0 cm Pancreas: wnl Liver: wnl Gallbladder: wnl Evidence for sonographic Najera's sign: no CBD: wnl Spleen: wnl Right Kidney: wnl Left Kidney: wnl Upper IVC: wnl Abd Aorta: wnl The visualized liver is heterogeneously hyperechoic. No suspicious masses or ductal dilatation on zechariah ges saved. Suspect mild diffuse fatty infiltration. The intrahepatic portion of the IVC and visualize d abdominal aorta are within normal limits. There is no evidence of cholelithiasis. Common bile dez t is unremarkable. The visualized portions of the pancreas are homogenous. The spleen is upper limi ts of normal in size. Kidneys are symmetric and free of hydronephrosis. No renal lesions are seen. IMPRESSION: No acute findings are evident to account for patient's symptoms.
== END | disposition home or self-care (01) ==
LOC: RADUSWWP 07:01
PROVIDERS: ATTEND Family Medicine
DX: R10.10 Upper abdominal pain, unspecified (principal); R07.9 Chest pain, unspecified; R10.12 Left upper quadrant pain
CPT/HCPCS: 71046; 76700

== ENCOUNTER → 2022-07-14 | Outpatient (CLI) | payer MEDICARE | END | disposition home or self-care (01) | LOC: LABWHC1 09:24 | PROVIDERS: ATTEND Internal Medicine Endocrinology, Diabetes & Metabolism | DX: C73 Malignant neoplasm of thyroid gland (principal); E03.8 Other specified hypothyroidism | CPT/HCPCS: 36415; 82308; 84443 ==

== ENCOUNTER → 2022-07-14 | Outpatient (CLI) | payer MEDICARE ==
--- NOTE | 2022-07-14 09:18 | MM ---
Reason for Exam: Clinical finding. Last mammogram was performed 1 year(s) and 3 month(s) ago. Indicated Problems: Pain of the left side (Focal) : no pain now. Patient History: Menarche at age 8. First Full-Term at age 26. Postmenopausal. Risk Values: Luna 5 year model risk: 2.2%. NCI Lifetime model risk: 5.0%. Prior Study Comparison: 09/19/2015 Right Diagnostic Mammogram, [facility]. 12/08/2017 Bilateral Screening Mammogram, [facility]. 04/23/2021 Bilateral Screening Mammogram, [facility]. Tissue Density: The breast tissue is heterogeneously dense. This may lower the sensitivity of mammography. Findings: Analyzed By CAD. Benign calcifications within both breasts. No worrisome cluster of microcalcifications within either breast. No new suspicious mass. No significant change from prior exams. Overall Assessment: Benign, BI-RAD 2 Management: Screening Mammogram of both breasts in 1 year. A clinical breast exam by your physician is recommended on an annual basis and results should be correlated with mammographic findings. This exam should not preclude additional follow-up of suspicious palpable abnormalities. Results were given to the patient verbally at the time of exam. Electronically signed and approved by: Chu Armstrong D.O.
== END ==
LOC: RADMAMWWP 08:44
PROVIDERS: ATTEND Family Medicine
DX: N64.4 Mastodynia (principal)
CPT/HCPCS: 77066

== ENCOUNTER → 2023-08-31 | Outpatient (CLI) | payer MEDICARE ==
[2023-08-31 15:57] LABS: ALT 37 U/L (8-44); AST 25 U/L (13-35); Albumin 4.2 g/dL (3.8-4.9); Alkaline Phosphatase 119 U/L (41-126); Blood Urea Nitrogen 14.8 mg/dL (9.0-27.0); Calcium 9.6 mg/dL (8.7-10.3); Carbon Dioxide 21.7 mmol/L (21.6-31.8); Chloride 102 mmol/L (96-109); Globulin 2.8 g/dL (1.6-3.3); Glucose 98 mg/dL (70-110); Potassium 4.5 mmol/L (3.5-5.5); Sodium 140 mmol/L (135-145); T4, Free (Free Thyroxine) 1.35 ng/dL (0.80-1.80); Total Bilirubin 0.2 mg/dL (0.3-1.2)
== END | disposition home or self-care (01) ==
LOC: LABWHC1 09:32
PROVIDERS: ATTEND Internal Medicine Endocrinology, Diabetes & Metabolism
DX: E78.2 Mixed hyperlipidemia (principal); E03.8 Other specified hypothyroidism
CPT/HCPCS: 36415; 80053; 82308; 84439; 84443

== ENCOUNTER → 2024-01-05 | Outpatient (CLI) | payer MEDICARE ==
--- NOTE | 2024-01-05 10:34 | USB ---
Reason for Exam: Clinical finding. Patient History: Menarche at age 8. First Full-Term at age 26. Postmenopausal. Risk Values: Luna 5 year model risk: 2.2%. NCI Lifetime model risk: 4.7%. Technique: Method: Targeted. Prior Study Comparison: 12/08/2017 Bilateral Screening Mammogram, [facility]. 04/23/2021 Bilateral Screening Mammogram, [facility]. 07/14/2022 Bilateral MG diagnostic mammo w CAD LUD[facility], [facility]. Findings: The lateral section of the breast of the left breast, the axilla of the left breast and the retroareolar of the left breast were scanned. No solid or cystic masses are identified.. Overall Assessment: Benign, BI-RAD 2 Management: Screening Mammogram of both breasts in 1 year. A clinical breast exam by your physician is recommended on an annual basis and results should be correlated with mammographic findings. This exam should not preclude additional follow-up of suspicious palpable abnormalities. Results were given to the patient verbally at the time of exam. Electronically signed and approved by: Dakota Lopez M.D. Radiologis
--- NOTE | 2024-01-05 10:44 | MM ---
Reason for Exam: Clinical finding. Last mammogram was performed 1 year(s) and 6 month(s) ago. Indicated Problems: Pain. Patient History: Menarche at age 8. First Full-Term at age 26. Postmenopausal. Risk Values: Luna 5 year model risk: 2.2%. NCI Lifetime model risk: 4.7%. Prior Study Comparison: 12/08/2017 Bilateral Screening Mammogram, [facility]. 04/23/2021 Bilateral Screening Mammogram, [facility]. 07/14/2022 Bilateral MG diagnostic mammo w CAD L[facility], [facility]. Tissue Density: The breasts are heterogeneously dense, which may obscure small masses. Findings: Analyzed By CAD. No distinct mass or distortion. No suspicious calcifications. Management clinically with regards to left breast pain. Overall Assessment: Incomplete: need additional imaging evaluation, BI-RAD 0 Management: Diagnostic Breast Ultrasound of the left breast. . Results were given to the patient verbally at the time of exam. Patient should continue monthly self-breast exams. A clinical breast exam by your physician is recommended on an annual basis. This exam should not preclude additional follow-up of suspicious palpable abnormalities. Note on Luna scores and lifetime risk: 1. A Luna score greater than 3% is considered moderate risk. If this is the case, consider specialist referral to assess eligibility for a risk reducing agent. 2. If overall lifetime risk for the development of breast cancer is 20% or higher, the patient may qualify for future screening with alternating mammogram and breast MRI. Electronically signed and approved by: Dakota Lopez M.D. Radiologis
== END | disposition home or self-care (01) ==
LOC: RADMAMWWP 09:02
PROVIDERS: ATTEND Family Medicine
DX: R92.333 Mammographic heterogeneous density, bilateral breasts (principal); N64.4 Mastodynia; Z78.0 Asymptomatic menopausal state
CPT/HCPCS: 77066; 76642; G0279; 77062

== ENCOUNTER → 2024-03-01 | Outpatient (CLI) | payer MEDICARE ==
[2024-03-01 15:55] LABS: ALT 27 U/L (8-44); AST 26 U/L (13-35); Albumin 4.4 g/dL (3.8-4.9); Albumin/Globulin Ratio 1.63 Ratio (1.60-3.17); Alkaline Phosphatase 85 U/L (41-126); BUN/Creat Ratio 25.33 Ratio (12.00-20.00); Blood Urea Nitrogen 22.8 mg/dL (9.0-27.0); Calcium 9.8 mg/dL (8.7-10.3); Carbon Dioxide 25.1 mmol/L (21.6-31.8); Chloride 106 mmol/L (96-109); Globulin 2.7 g/dL (1.6-3.3); Glucose 105 mg/dL (70-110); Potassium 5.2 mmol/L (3.5-5.5); Sodium 143 mmol/L (135-145); Total Bilirubin 0.4 mg/dL (0.3-1.2); Total Protein 7.1 g/dL (6.2-8.2)
== END | disposition home or self-care (01) ==
LOC: LABWHC1 09:23
PROVIDERS: ATTEND Internal Medicine Endocrinology, Diabetes & Metabolism
DX: C73 Malignant neoplasm of thyroid gland (principal); E03.8 Other specified hypothyroidism
CPT/HCPCS: 36415; 80053; 82308; 84443

== ENCOUNTER → 2024-06-28 | Outpatient (CLI) | payer MEDICARE ==
--- NOTE | 2024-06-28 08:11 | XR ---
EXAMINATION TYPE: XR ribs LT DATE OF EXAM: 06/28/2024 CLINICAL HISTORY: Pain, Fall Four views of the ribs fail demonstrate evidence for displaced rib fracture or secondary sign of rib fracture. Visualized lungs are clear. No evidence for pneumothorax. IMPRESSION: No displaced rib fractures seen. ICD 10 NO FRACTURE, INITIAL EVALUATION [facility], , 06/28/2024 8:08 AM
--- NOTE | 2024-06-28 13:57 | NM ---
EXAMINATION TYPE: NM bone scan whole body DATE OF EXAM: 06/28/2024 COMPARISON: NONE CLINICAL INDICATION: Female, 74 years old with history of Z85.850 HX THYROID CANCER; Delayed whole-body scanning was performed following the injection of 24.3 mCi Tc 99m MDP. Images acq uired 5.5 hours post injection. FINDINGS: Degenerative uptake about the shoulders, mid thoracic, lumbar and bilateral mid feet. No evidence for intense uptake to suggest fracture or metastatic disease. 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 IMPRESSION: No evidence for intense uptake to suggest fracture or metastatic disease. [facility], , 06/28/2024 1:54 PM
== END | disposition home or self-care (01) ==
LOC: RADNMMAIN 06:52
PROVIDERS: ATTEND Family Medicine
DX: Z85.850 Personal history of malignant neoplasm of thyroid
CPT/HCPCS: 78306